=== PATIENT | female | born 1950 | race Caucasian/White ===

== ENCOUNTER 2019-07-15 14:47 | Outpatient (CLI) | payer MEDICARE, SELFPAY ==
--- NOTE | 2019-07-15 15:00 | MM_ITS ---
WS: [id number] SCREENING DIGITAL MAMMOGRAM WITH CAD HISTORY: SCREEN COMPARISON: None available. Bilateral CC and MLO views submitted. Computer aided detection analyzed. Breast composition: There are scattered areas of fibroglandular density. Bilateral asymmetries need f urther evaluation. Asymmetries are present in the upper outer quadrant of each breast. These may be b enign lymph nodes but with no prior studies for comparison additional workup is necessary. There is n o architectural distortion. There is an asymmetry on the RIGHT MLO projection which I believe is prob ably the nipple not in profile. Nipple marker recommended on the follow-up studies. RIGHT breast: Spot compression views (CC and MLO). True ML. Ultrasound to follow if abnormality persi sts. Additional nipple marker placed on the RIGHT MLO projection. LEFT breast: Spot compression views (CC and MLO). True ML. Ultrasound to follow if abnormality persis ts. MM/[place] [id number] IMPRESSION: BI-RADS: 0-Incomplete: Need additional imaging evaluation FOLLOW UP: Need Additional Imaging
== END 2019-07-15 14:48 | disposition home or self-care (01) ==
LOC: RADSHAW 14:54
PROVIDERS: PCP Nurse Practitioner Family; Visit Provider Nurse Practitioner Family
DX: Z12.31 Encounter for screening mammogram for malignant neoplasm of breast (principal); N64.89 Other specified disorders of breast
CPT/HCPCS: 77067

== ENCOUNTER 2019-09-02 09:49 | Outpatient (CLI) | payer MEDICARE, SELFPAY ==
--- NOTE | 2019-09-02 10:01 | US_ITS ---
WS: [id number] ADDITIONAL VIEWS BILATERAL MAMMOGRAM AND BILATERAL BREAST ULTRASOUND ADDITIONAL VIEWS BILATERAL MAMMOGRAM HISTORY: Bilateral abnormal mammogram. COMPARISON: 07/15/2019 Right breast: Lobulated mass in the upper-outer quadrant in a middle depth persists measuring 12 mm. Mass is of slightly increased density. Left breast: 9 mm asymmetry 3:00 axis of the LEFT breast posteriorly also persists. Ill-defined mass. No distortion. BREAST ULTRASOUND RIGHT breast: Lobulated complex cystic mass with septations and echogenic carney. There is adjacent po sterolateral complex cyst in total measuring 1.4 x 0.6 cm. Corresponds in size and location to the ma mmographic abnormality at 10:00, 4 cm from the nipple. LEFT breast: The LEFT breast abnormality posteriorly at 3:00 is not definitely seen by mammography. T here is a lymph node present in the upper-outer quadrant. 1. Ultrasound-guided biopsy recommended of this cystic nodule with septations and echogenic carney RI GHT breast at 10:00, 4 cm from the nipple. 2. 6 month follow-up LEFT mammogram and possible ultrasound. Notified BRANDY MARRERO at 09/02/2019 11:25 AM. US/US breast BI limited* [id number] IMPRESSION: BI-RADS: 4B-Suspicious: Intermediate FOLLOW UP: Biopsy Recommended
== END 2019-09-02 09:50 | disposition home or self-care (01) ==
LOC: RADSHAW 09:57
PROVIDERS: PCP Nurse Practitioner Family; Visit Provider Nurse Practitioner Family
DX: R92.8 Other abnormal and inconclusive findings on diagnostic imaging of breast (principal); N63.11 Unspecified lump in the right breast, upper outer quadrant; N64.89 Other specified disorders of breast
CPT/HCPCS: 76642; 77066

== ENCOUNTER 2019-09-11 16:30 | Outpatient (CLI) | payer MEDICARE, SELFPAY ==
--- NOTE | 2019-09-11 16:51 | XRR_ITS ---
PROCEDURE INFORMATION: Exam: XR Right Shoulder Exam date and time: 09/11/2019 4:51 PM Age: 68 years old Clinical indication: Injury or trauma; Fall; Initial encounter; Blunt trauma (contusions or hematomas; Shoulder; Right; Injury date: About 3 months ago; Additional info: Pain in right shoulder TECHNIQUE: Imaging protocol: XR Right shoulder. Views: 2 or more views. COMPARISON: No relevant prior studies available. FINDINGS: Bones/joints: Normal. Soft tissues: Normal. XR/XR shoulder RT min 2V* [id number] IMPRESSION: No acute findings.
== END 2019-09-11 16:31 | disposition home or self-care (01) ==
LOC: RAD 16:32
PROVIDERS: PCP Nurse Practitioner Family; Visit Provider Nurse Practitioner Family
DX: M25.511 Pain in right shoulder (principal); W19.XXXA Unspecified fall, initial encounter
CPT/HCPCS: 73030

== ENCOUNTER 2019-09-13 11:58 | Outpatient (CLI) | payer MEDICARE, SELFPAY ==
--- NOTE | 2019-09-13 12:09 | US_ITS ---
WS: [id number] ULTRASOUND-GUIDED RIGHT BREAST BIOPSY CLINICAL INFORMATION: BREAST MASS/R BREAST ABNORMAL MAMMOGRAM COMPARISON: None. FINDINGS: The procedure including risks, benefits, and complications were discussed with the patient who agreed to proceed. Using sterile technique patient was prepped and draped in the usual sterile fashion. Aft er 1% lidocaine utilizing real-time ultrasound guidance aspiration was performed utilizing a 16-gauge needle and ultrasound guidance. Approximately 1 to 2 cc of bloody fluid was aspirated and sent for c ytology. Next 5 14-gauge cores were obtained of the lobulated breast lesion at the 10 o'clock positio n. Subsequently a titanium clip was placed in the biopsy cavity. No immediate complications. PATHOLOGY DEMONSTRATES Right breast, 10 o'clock position, needle core biopsies: Disrupted intraductal papillomas and focal a typical intraductal hyperplasia Surrounding breast with fibrosis and chronic inflammation CYTOLOGY DEMONSTRATES Moderate cellularity with sheets of benign ductal cells as well as histiocytes. A few apical and cell s. Lesions are essentially benign but atypical neoplastic lesion cannot be excluded. US/[place] [id number] IMPRESSION: 1. Uncomplicated ultrasound-guided right breast biopsy and aspiration of the s eptated clustered cysts. 2. Pathology demonstrates intraductal papilloma with focal atypical intraducta l hyperplasia. Recommend breast surgery consult for consideration of surgical b iopsy. BI-RADS: 4A-Suspicious: Low FOLLOW UP: Surgical Biopsy Recommended
== END 2019-09-13 11:59 | disposition home or self-care (01) ==
LOC: RAD 12:03
PROVIDERS: PCP Nurse Practitioner Family; Visit Provider Nurse Practitioner Family
DX: R92.8 Other abnormal and inconclusive findings on diagnostic imaging of breast (principal); N63.11 Unspecified lump in the right breast, upper outer quadrant; N62 Hypertrophy of breast; D24.1 Benign neoplasm of right breast; N60.31 Fibrosclerosis of right breast
CPT/HCPCS: 19083; 88112; 88305

== ENCOUNTER → 2022-01-06 14:36 | Outpatient (BNVA) | payer MEDICARE, SELFPAY | PROVIDERS: PCP Nurse Practitioner Family; Visit Provider Family Medicine | DX: M25.473 Effusion, unspecified ankle (principal); R60.0 Localized edema | CPT/HCPCS: 81000 ==

== ENCOUNTER 2022-01-10 01:00 | Outpatient (CLI) | payer MEDICARE, SELFPAY | END 2022-01-10 23:00 | LOC: RAD 01-16 10:12 | PROVIDERS: PCP Nurse Practitioner Family; Visit Provider Nurse Practitioner | DX: M25.561 Pain in right knee (principal); M25.562 Pain in left knee; E66.9 Obesity, unspecified; Z68.41 Body mass index [BMI] 40.0-44.9, adult | CPT/HCPCS: 20610; 73560; 73565; 99204; J1100; J2795; J3301 ==

== ENCOUNTER 2022-01-14 07:33 | Outpatient (CLI) | payer MEDICARE, SELFPAY ==
--- NOTE | 2022-01-14 07:43 | US_ITS ---
WS: [id number] RIGHT UPPER QUADRANT ULTRASOUND HISTORY: RUQ ABDOMINAL PAIN COMPARISON: 07/23/2017 and 12/05/2015 Liver: 15.1 cm in length. Normal size liver. No bile duct dilatation or mass. Portal Vein: Normal hepatopetal flow with monophasic waveform. Gallbladder: Large amount shadowing from the gallbladder consistent with cholelithiasis. Cholelithias is has been previously described. The extent of the calcifications appears to have progressed. No per icholecystic fluid or wall thickening. CBD: 0.4 cm Pancreas: Partially visualized. Head and tail are obscured by bowel gas. Right kidney: 17.5 cm in length. Enlarged kidney. Patient has known large parapelvic cysts that were previously described on 03/12/2016. Multiple cystic masses throughout the renal pelvis mimics hydronep hrosis. The cortex is thinned. Very similar to the prior examinations. It would be difficult to exclu de hydronephrosis but based upon the prior imaging studies no change since at least 2017. These were thought to be parapelvic cysts. Aorta and IVC: Unremarkable abdominal aorta and IVC. No ascites. US/US gall bladder [id number] IMPRESSION: 1. Cholelithiasis. Numerous large stones in the gallbladder without acute chol ecystitis. 2. Numerous cystic structures in the RIGHT renal pelvis. Differential includes hydronephrosis and parapelvic cyst. Parapelvic cysts were described in 2017 an d the appearance is very similar.
== END 2022-01-14 07:34 | disposition home or self-care (01) ==
LOC: RAD 07:35
PROVIDERS: PCP Nurse Practitioner Family; Visit Provider Nurse Practitioner
DX: K80.20 Calculus of gallbladder without cholecystitis without obstruction (principal); R10.11 Right upper quadrant pain
CPT/HCPCS: 76705

== ENCOUNTER 2022-01-22 13:31 | Outpatient (CLI) | payer MEDICARE, SELFPAY ==
--- NOTE | 2022-01-22 13:45 | XR_ITS ---
WS: [id number] DEXA (DUAL ENERGY X-RAY ABSORPTIOMETRY) Bone mineral density was performed using a [employer] machine. HISTORY: POST MENOPAUSAL COMPARISON: None available. Lumbar spine BMD (L1-L4): 1.131 g/cm2 T score: -0.4 Z score: 0.1 Total hip BMD: Left: 0.854 g/cm2. T score: -1.2 Z score: -0.5 Right: 0.704 g/cm2. T score: -2.4 Z score: -1.7 10 year probability of a major osteoporotic fracture is 26.6%. XR/XR DEXA axial skeleton* [id number] IMPRESSION: OSTEOPENIA based upon the WHO classification for females.
== END 2022-01-22 13:32 | disposition home or self-care (01) ==
LOC: RAD 13:35
PROVIDERS: PCP Nurse Practitioner; Visit Provider Nurse Practitioner
DX: Z78.0 Asymptomatic menopausal state (principal); M85.80 Other specified disorders of bone density and structure, unspecified site
CPT/HCPCS: 77080

== ENCOUNTER 2022-01-30 14:54 | Outpatient (CLI) | payer MEDICARE, SELFPAY ==
--- NOTE | 2022-01-30 15:02 | MM_ITS ---
WS: [id number] BILATERAL 3D TOMOSYNTHESIS DIGITAL SCREENING MAMMOGRAPHY WITH CAD CLINICAL INFORMATION: SCREENING HISTORY: Screening mammogram. No current complaints. COMPARISON: September 02, 2019 TECHNIQUE: Bilateral CC and MLO views. FINDINGS: Scattered fibroglandular densities bilaterally. No suspicious focal mass, asymmetry, calcifications, or architectural distortion. No evidence of malignancy. A few incidental punctate calcifications. MM/[place] [id number] IMPRESSION: BI-RADS: 2-Benign FOLLOW UP: 1 Year Follow-up Recommend return to annual screening mammography.
== END 2022-01-30 14:55 | disposition home or self-care (01) ==
LOC: RAD 14:55
PROVIDERS: PCP Nurse Practitioner; Visit Provider Nurse Practitioner
DX: Z12.31 Encounter for screening mammogram for malignant neoplasm of breast (principal)
CPT/HCPCS: 77063; 77067

== ENCOUNTER → 2022-02-05 08:06 | Outpatient (BNVA) | payer MEDICARE, SELFPAY | PROVIDERS: PCP Nurse Practitioner; Visit Provider Nurse Practitioner Family | DX: M17.0 Bilateral primary osteoarthritis of knee (principal) | CPT/HCPCS: 20610; 99213 ==

== ENCOUNTER → 2022-05-08 10:38 | Outpatient (BNVA) | payer MEDICARE, SELFPAY | PROVIDERS: PCP Nurse Practitioner; Visit Provider Nurse Practitioner Family | DX: M25.561 Pain in right knee (principal); M25.562 Pain in left knee; E66.9 Obesity, unspecified; Z68.41 Body mass index [BMI] 40.0-44.9, adult | CPT/HCPCS: 20610; 99213; J1100; J3301; J3490 ==

== ENCOUNTER → 2022-08-21 09:25 | Outpatient (BNVA) | payer MEDICARE, MEDICAID, SELFPAY | PROVIDERS: PCP Nurse Practitioner; Visit Provider Nurse Practitioner Family | DX: M25.561 Pain in right knee (principal); M25.562 Pain in left knee | CPT/HCPCS: 20610; 99213; J1100; J2795; J3301 ==

== ENCOUNTER 2022-09-21 14:13 | Emergency (ER) | payer MEDICARE, MEDICAID, SELFPAY ==
[2022-09-21 14:19] VITALS: BP 166/87; PULSE 70; RESP 16; TEMP 36.7; O2SAT 96; BMI 45.3
--- NOTE | 2022-09-21 15:46 | W.ED.WOUNDLC ---
HPI - Wound/Laceration General: Chief Complaint: Wound/Laceration Stated Complaint: Left Hand Finger Lac Time Seen by Provider: 09/21/22 14:29 History of Present Illness: Patient is a right dominant 71-year-old female that presents to the emergency to the left index finger distal to the DIP No active bleeding here No nail involvement Last tetanus was Associated symptoms: Denies chills, fever(s), nausea or vomiting Review of Systems General: Reports: 10 or more systems reviewed and unremarkable except in HPI and below Const: Denies: fever(s), chills, change in appetite, change in weight, fatigue or malaise Eyes: Denies: change in vision, eye discomfort, eye discharge or eye redness ENMT: Denies: throat pain, enlarged tonsils, odynophagia, hoarseness, ear or mastoid pain, ear discharge, change in hearing, tinnitus, nasal discharge, nasal congestion, post nasal drip or sinus pain Card: Denies: chest pain, palpitations, irregular heart rhythm, edema, dyspnea on exertion, orthopnea or leg pain with exertion Resp: Denies: dyspnea, productive cough, non-productive cough, wheezing, stridor or chest congestion GI: Denies: abdominal pain, nausea, vomiting, dysphagia, diarrhea, constipation, bloating, GI cramping or hematochezia : Denies: flank pain, difficulty voiding, dysuria, urinary frequency, urinary urgency, urinary hesitancy, oliguria or hematuria Musc: Denies: neck pain, back pain, extremity pain, joint pain, joint swelling, joint redness, joint warmth or muscle weakness Skin/Breast: Denies: rash, pruritus, erythema, photosensitivity or new lesions Neuro: Denies: headache(s), numbness in extremities, weakness in extremities, sensory changes, lack of coordination, difficulty walking, frequent falls, dizziness, confusion, Slurred speech present, difficulty communicating thoughts, seizure-like activity or involuntary movements Endo: Denies: polyuria, polydipsia or tired all the time Sina/Lymph: Denies: easy bruising or easy bleeding PFSH ED PFSH: Social History Smoking and tobacco status: never smoked Alcohol intake: never Substance/Drug Use: never Physical Exam Const: COMMON NORMALS: no acute distress, patient oriented x3 and alert GENERAL APPEARANCE: cooperative ORIENTATION/CONSCIOUSNESS: Yes awake, Yes oriented to person, Yes oriented to place and Yes oriented to time HENMT: COMMON NORMALS: normocephalic and atraumatic HEAD & SCALP: normocephalic and atraumatic FACE & SINUS: normal facial exam MOUTH: Normal oral and palatal mucosa present THROAT: posterior oropharynx normal Eye: COMMON NORMALS: Equal, round and reactive pupils present, EOMs intact bilaterally, conjunctivae normal and no scleral icterus GENERAL EYE: appearance normal, both eyes and all related structures ALIGNMENT: Yes alignment normal PERIORBITAL: periorbital findings normal CONJUNCTIVA: Yes conjunctivae normal PUPIL: Yes Equal, round and reactive pupils present Neck/C-Spine: COMMON NORMALS: full ROM GENERAL: Yes normal visual inspection Lymph: LYMPHATIC: no lymphadenopathy noted Chest: COMMONS NORMALS: normal inspection of the chest Breast/axilla inspection: Yes no chest deformity, asymmetry, normal contours, no nodules, masses, tenderness Resp: COMMON NORMALS: normal respiratory effort, No retractions, No use of accessory muscles and clear to auscultation bilaterally EFFORT & INSPECTION: Yes able to speak in complete sentences and Yes symmetric chest movement AUSCULTATION: clear to auscultation bilaterally Cardio: COMMON NORMALS: regular rate, regular rhythm and Peripheral pulses 2+ throughout RATE: regular rate RHYTHM: regular rhythm PERIPHERAL PULSES: Peripheral pulses 2+ throughout GI: COMMON NORMALS: Normal to inspection, nondistended, normoactive bowel sounds present, Soft to palpation, non-tender and No hepatosplenomegaly present INSPECTION: Yes normal to inspection AUSCULTATION: Yes normoactive bowel sounds PALPATION: Yes Soft to palpation and Yes No hepatosplenomegaly present RECTAL EXAM: deferred Extremity: COMMON NORMALS: normal to inspection GENERAL: Yes normal exam except as noted Neuro: COMMON NORMALS: patient oriented x3 SENSORIUM/ORIENTATION: Yes alert, Yes oriented to person, Yes oriented to place and Yes oriented to time CRANIAL NERVES: Yes CN normal except as noted Psych: COMMON NORMALS: mental status grossly normal, Normal thought process present, cooperative, activity/motor behavior normal, denies homicidal ideation and denies suicidal ideation THOUGHT PROCESS: Normal thought process present Skin: COMMON NORMALS: no rashes or lesions noted, no wounds and turgor normal NARRATIVE SKIN EXAM: Half centimeter lunate laceration to the medial aspect of the left index finger distal to the DIP No active bleeding No tendon involvement No nail involvement GENERAL SKIN EXAM: no rashes or lesions noted and turgor normal Procedures Laceration Laceration 1: Site: hand (Finger) Side (If applicable): left Size (cm): 0.5 Description: linear (Lunate) Depth: simple, single layer Local Anesthetic: other anesthetic (Not applicable) Pre-repair: wound explored, irrigated extensively and deep structures intact Skin layer closed with: other (Tissue adhesive) Course Vital Signs: Vital signs: Vital Signs Temperature 98.0 F 09/21/22 14:19 Pulse Rate 70 09/21/22 14:19 Respiratory Rate 16 09/21/22 14:19 Blood Pressure 166/87 09/21/22 14:19 Pulse Oximetry 96 09/21/22 14:19 Oxygen Delivery Me thod Room Air 09/21/22 14:19 MDM - Wound/Laceration Medical Decision Making Injury was sustained while she was cutting squash. She cut it with a clean knife. Wound was cleansed with soap and water utilizing a Steri-Strip and tissue adhesive it was closed. Discharge Plan Discharge Patient Disposition: Home Clinical Impression: Laceration Condition: Stable Prescriptions: No Action alendronate 70 mg tablet PO amoxicillin 875 mg tablet 875 mg PO BID benzonatate 200 mg capsule 200 mg PO TID oxybutynin chloride 5 mg tablet 5 mg PO DAILY meloxicam 15 mg tablet 15 mg PO DAILY Qty: 30 1RF rosuvastatin [Crestor] 5 mg tablet 10 mg PO DAILY furosemide 40 mg tablet 40 mg PO QAM Qty: 7 0RF Discharge Orders: Discharge ED (Routine); Ordered 09/21/22 Ordered By: Caryn Crespo Referrals: Emily Cisse FNP [Primary Care Provider] - Discharge Diet: Advance as tolerated Discharge Activity: Resume usual activity Patient Instructions: Laceration (ED), Skin Adhesive Care (ED) Activity Restrictions/Additional Instructions: Please return to the emergency department for new concerning or worsening symptoms Coding Level of Care Code ED Director Transportation for Catrachito Tran
== END 2022-09-21 17:03 | disposition home or self-care (01) ==
PROVIDERS: Emergency Provider Nurse Practitioner; PCP Nurse Practitioner
DX: S61.211A Laceration without foreign body of left index finger without damage to nail, initial encounter (principal); W26.0XXA Contact with knife, initial encounter
CPT/HCPCS: 12001; 99282

== ENCOUNTER 2023-11-29 11:03 | Emergency (ER) | payer MEDICARE, MEDICAID, SELFPAY ==
--- NOTE | 2023-11-29 11:25 | USR_ITS ---
PROCEDURE INFORMATION: Exam: US Duplex Right Lower Extremity Veins, Limited Exam date and time: 11/29/2023 12:30 PM Age: 73 years old Clinical indication: Edema, localized; Lower extremity, right; Additional info: Swelling TECHNIQUE: Imaging protocol: Real-time duplex ultrasound of the right extremity with 2-D polo scale, color Doppler flow and spectral waveform analysis including responses to compression and other maneuvers (when performed) with image documentation. Limited exam was focused on the right lower extremity veins. COMPARISON: US renal BI* [id number] 07/23/2017 2:24 PM FINDINGS: Right deep veins: Hypoechoic, occlusive thrombus in the femoral, popliteal and peroneal veins. The common femoral, proximal profunda femoral and posterior tibial veins are patent without thrombus. Superficial veins: Greater saphenous vein at the saphenofemoral junction is patent without thrombus. Soft tissues: Unremarkable. US/[place] [id number] IMPRESSION: Right lower extremity deep venous thrombosis, as described above.
[2023-11-29 11:27] VITALS: BP 133/76; PULSE 70; RESP 16; TEMP 36.7; O2SAT 96; BMI 38.9
[2023-11-29 12:00] VITALS: BP 116/61; PULSE 60; O2SAT 98
--- NOTE | 2023-11-29 12:09 | ED_ITS ---
HPI - Extremity Problem General: Chief complaint: Extremity Problem,Nontraumatic Stated complaint: swollen leg (sent by [facility] clinic) Time Seen by Provider: 11/29/23 11:39 History of Present Illness: 73-year-old female presents emergency ro om planing right leg swelling. She was seen earlier in [place] emergency room transferred here via private vehicle because she is concerned she has a DVT. Patient has a superficial thrombophlebitis with small area of ecchymosis in the lateral right lower leg. No chest pain no shortness of breath. Associated symptoms: Deny chest pain, fever(s) or rash Related Data Home Medications Medication Instructions Recorded Confirmed oxybutynin chloride 5 mg tablet 5 mg PO DAILY 12/20/21 09/21/22 rosuvastatin 5 mg tablet (Crestor) 10 mg PO DAILY 02/05/22 09/21/22 alendronate 70 mg tablet 70 mg PO Q7D 08/21/22 09/21/22 lisinopril 5 mg tablet 5 mg PO DAILY 07/07/23 07/07/23 tramadol 50 mg tablet 50 mg PO DAILY PRN 07/07/23 07/07/23 Previous Rx's Medication Instructions Recorded albuterol sulfate 90 mcg/actuation 2 puff inhalation Q4H PRN 07/07/23 aerosol inhaler (Ventolin HFA) shortness of breath or wheezing #8.5 grams doxycycline hyclate 100 mg tablet 100 mg PO BID 7 days #14 tabs 07/07/23 apixaban 5 mg (74 tabs) tablets in See Rx Instructions PO .COMPLEX 11/29/23 a dose pack (Eliquis DVT-PE Treat #74 ea 30D Start) Allergies Allergy/AdvReac Type Severity Reaction Status Date / Time constrast Allergy Unknown Uncoded 11/29/23 11:33 Review of Systems Const: Denies: fever(s) or chills Card: Denies: chest pain Resp: Denies: dyspnea GI: Denies: abdominal pain : Denies: dysuria, urinary frequency or urinary urgency Musc: Reports: extremity pain; Denies: neck pain or back pain Skin/Breast: Denies: rash PFSH ED PFSH: Social History Smoking and tobacco/nicotine status: never used tobacco/nicotine Alcohol intake: never Substance/Drug Use: never Physical Exam Const: COMMON NORMALS: no acute distress GENERAL APPEARANCE: cooperative and comfortable ORIENTATION/CONSCIOUSNESS: Yes awake, Yes oriented to person, Yes oriented to place and Yes oriented to time HENMT: COMMON NORMALS: normocephalic, atraumatic and hearing grossly normal bilaterally HEAD & SCALP: normocephalic and atraumatic Resp: COMMON NORMALS: normal respiratory effort, No retractions, No use of accessory muscles and clear to auscultation bilaterally AUSCULTATION: clear to auscultation bilaterally Cardio: COMMON NORMALS: regular rate, regular rhythm and No murmurs present (Cardio) RATE: regular rate RHYTHM: regular rhythm GI: COMMON NORMALS: Soft to palpation and No hepatosplenomegaly present AUSCULTATION: Yes normoactive bowel sounds PALPATION: Yes Soft to palpation, No Tenderness to palpation present (GI), No Guarding due to palpation present (GI) and Yes No hepatosplenomegaly present Extremity: COMMON NORMALS: normal to inspection, capillary refill normal, no clubbing, cyanosis or edema, no calf tenderness and no pedal edema OTHER: Tenderness with moderate swelling right lower leg with some ecchymosis warm to the touch. Consistent with superficial thrombophlebitis. Homans negative. Neuro: SENSORIUM/ORIENTATION: Yes oriented to person, Yes oriented to place and Yes oriented to time Skin: COMMON NORMALS: no rashes or lesions noted GENERAL SKIN EXAM: no rashes or lesions noted Course Vital Signs: Vital signs: Vital Signs Temperature 98.1 F 11/29/23 11:27 Pulse Rate 70 11/29/23 11:27 Respiratory Rate 16 11/29/23 11:27 Blood Pressure 133/76 11/29/23 11:27 Pulse Oximetry 96 11/29/23 11:27 Oxygen Delivery Me thod Room Air 11/29/23 11:27 MDM - Extremity (Nontraumatic) Medical Decision Making Venous duplex lower leg does show evidence of DVT. Patient given Lovenox emergency room and was started on Eliquis regular starter pack. Patient advised to follow-up with primary care doctor regarding continuation on the Eliquis. As scheduled next week of the knee arthroplasty recommend she contact her doctor to advise that she was recently diagnosed with a DVT but will likely need to reschedule. 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 Condition: Stable Prescriptions: New Eliquis DVT-PE Treat 30D Start 5 mg (74 tabs) tablets,dose pack See Rx Instructions .ROUTE .COMPLEX Qty: 74 0RF Rx Instructions: orally per package directions No Action alendronate 70 mg tablet 70 mg PO Q7D Rx Instructions: ON FRIDAY lisinopril 5 mg tablet 5 mg PO DAILY tramadol 50 mg tablet 50 mg PO DAILY PRN doxycycline hyclate 100 mg tablet 100 mg PO BID 7 Days Qty: 14 0RF albuterol sulfate [Ventolin HFA] 90 mcg/actuation HFA aerosol inhaler 2 puff inhalation Q4H PRN (Reason: shortness of breath or wheezing) Qty: 8.5 0RF oxybutynin chloride 5 mg tablet 5 mg PO DAILY rosuvastatin [Crestor] 5 mg tablet 10 mg PO DAILY Discharge Orders: Discharge ED (Routine); Ordered 11/29/23 Ordered By: Tr Nix Referrals: Emily Cisse, SAP BW ARCHITECT [Primary Care Provider] - Discharge Diet: Usual diet Discharge Activity: Resume usual activity Patient Instructions: Apixaban (By mouth) (Eliquis), Deep Vein Thrombosis (ED), Opioid Safety, Pain Management Activity Restrictions/Additional Instructions: Thank you for choosing [facility] for your healthcare needs today. It is very important that you follow up as instructed or that you return to the Emergency Department should you have concerns or if your condition changes or worsens in any way. Follow-up with your doctor regarding the DVT he will need to be on long-term anticoagulation. Initial prescription was given to take for 30 days you should follow-up with To get refills. Coding Level of Care Code ED Traveling Buyer for Catrachito Tran
[2023-11-29 12:30] VITALS: BP 104/68; PULSE 69; O2SAT 98
[2023-11-29 13:00] VITALS: BP 120/65; PULSE 65; O2SAT 99
[2023-11-29] MEDS: enoxaparin 100 mg/mL Syringe SUBCUT (13:08)
[2023-11-29 13:30] VITALS: BP 127/68; PULSE 70; O2SAT 98
== END 2023-11-29 13:32 | disposition home or self-care (01) ==
PROVIDERS: Emergency Provider Family Medicine; PCP Nurse Practitioner
DX: I82.431 Acute embolism and thrombosis of right popliteal vein (principal); I82.451 Acute embolism and thrombosis of right peroneal vein; I82.411 Acute embolism and thrombosis of right femoral vein; I83.11 Varicose veins of right lower extremity with inflammation
CPT/HCPCS: 93971; 96372; 99284; J1650

== ENCOUNTER 2024-01-26 12:40 | Outpatient (CLI) | payer MEDICARE, MEDICAID, SELFPAY ==
--- NOTE | 2024-01-26 12:46 | XR_ITS ---
WS: [id number] DEXA (DUAL ENERGY X-RAY ABSORPTIOMETRY) Bone mineral density was performed using a [employer] machine. HISTORY: OSTEOPOROSIS COMPARISON: 01/22/2022 Lumbar spine BMD (L1-L4): 1.005 g/cm2 T score: -1.5 Z score: -0.8 Total hip BMD: Left: 0.911 g/cm2. T score: -0.8 Z score: 0.1 Right: 0.781 g/cm2. T score: -1.8 Z score: -0.9 10 year probability of a major osteoporotic fracture is 29.7%. Compared to the prior study from 01/22/2022. Lumbar spine bone mineral density has decreased by 11.1%. Bilateral hips bone mineral density has increased by 8.6%. XR/XR DEXA axial skeleton* [id number] IMPRESSION: OSTEOPENIA based upon the WHO classification for females. Significant decrease in bone mineral density within the lumbar spine. Significant increase in bone mineral density within the hips.
--- NOTE | 2024-01-26 12:46 | MM_ITS ---
WS: [id number] Bilateral screening 3D tomosynthesis digital mammogram, 01/26/2024 12:57 PM Clinical Data: SCREENING Comparison: 01/30/2022, 09/02/2019, 07/15/2019 Findings: No spiculated masses or clustered calcifications are seen. There are no secondary signs of carcinoma . MM/MM scr BI tomosynthesis [id number] Impression: Negative bilateral mammogram unchanged. Recommend annual screening mammograms. BIRADS: 1 - Negative. FOLLOW UP: 1 Year Follow-up DENSITY: There are scattered areas of fibroglandular density. The CAD typing checker was used
== END 2024-01-26 12:41 | disposition home or self-care (01) ==
LOC: RAD 12:41
PROVIDERS: PCP Nurse Practitioner; Visit Provider Nurse Practitioner
DX: Z12.31 Encounter for screening mammogram for malignant neoplasm of breast (principal); Z13.820 Encounter for screening for osteoporosis; M85.80 Other specified disorders of bone density and structure, unspecified site; M81.0 Age-related osteoporosis without current pathological fracture
CPT/HCPCS: 77063; 77067; 77080

== ENCOUNTER 2024-06-28 08:33 | Outpatient (CLI) | payer MEDICARE, MEDICAID, SELFPAY ==
--- NOTE | 2024-06-28 08:37 | US_ITS ---
WS: [id number] RENAL ULTRASOUND HISTORY: RENAL CYST COMPARISON: CT 03/12/2016, prior renal ultrasound 07/23/2017, CT 08/07/2005 TECHNIQUE: 2-D and color Doppler imaging of the kidney submitted. Right kidney: 14.7 cm x 6.9 cm x 7.0 cm. Cortex: 0.9 cm Enlarged kidney with diffuse thinning of the renal cortex. Multiple cystic masses are noted within the renal pelvis. These masses have been present since 2016 thought to be parapelvic cyst. There is mild medullary enlargement. Possibility of a high-grade UP junction obstruction should also be considered. Left kidney: 13.8 (cm) cm x 6.1 (cm) cm x 6.2 (cm) cm. Cortex: 0.4 cm Enlarged kidney with diffuse cortical thinning. Multiple cystic masses throughout the renal pelvis. Medullary prominence also. Aorta: Not visualized. Urinary Bladder: Minimally distended. US/US renal BI* [id number] IMPRESSION: 1. Mildly enlarged kidneys with diffuse cortical thinning. 2. Multiple cystic masses within the renal pelves. Differential includes multi ple parapelvic cysts or longstanding UP junction obstruction. These cystic mass es have been present on multiple prior studies including extending back to 2005 . Functional nuclear medicine renal study may be of benefit.
== END 2024-06-28 08:34 | disposition home or self-care (01) ==
PROVIDERS: PCP Nurse Practitioner; Visit Provider Nurse Practitioner Family
DX: N28.1 Cyst of kidney, acquired (principal); N28.81 Hypertrophy of kidney; N28.89 Other specified disorders of kidney and ureter; R93.422 Abnormal radiologic findings on diagnostic imaging of left kidney
CPT/HCPCS: 76770

== ENCOUNTER → 2024-07-30 11:19 | Outpatient (BNVA) | payer MEDICARE, MEDICAID, SELFPAY | PROVIDERS: PCP Nurse Practitioner; Visit Provider Internal Medicine | DX: E07.9 Disorder of thyroid, unspecified (principal); E05.90 Thyrotoxicosis, unspecified without thyrotoxic crisis or storm | CPT/HCPCS: 99204 ==

== ENCOUNTER → 2024-10-19 12:38 | Outpatient (BNVA) | payer MEDICARE, MEDICAID, SELFPAY | PROVIDERS: PCP Nurse Practitioner; Visit Provider Internal Medicine | DX: E07.9 Disorder of thyroid, unspecified (principal); E05.90 Thyrotoxicosis, unspecified without thyrotoxic crisis or storm | CPT/HCPCS: 36415; 83516; 84439; 84443; 84480; 86376; 86800; 99214 ==

== ENCOUNTER 2024-10-21 17:21 | Emergency (ER) | payer MEDICARE, MEDICAID, SELFPAY ==
--- OUTSIDE RECORDS SUMMARY | 2023-06-30 12:00 | XMS_ITS ---
Author Organization [facility] Address [address] [facility] [place] [address] Care Team Providers Care Food Quality Technician Name Role Phone Emily Cisse APN Primary Care Provider Parasa BOBBY Ray Unavailable [phone] REASON FOR VISIT 1 yr w/ ua/pvr Encounters Encounter Location Date Provider Diagnosis [facility] [address] [place] [facility] [place] [address] 06/30/2023 BOBBY FAUSTIN Plan Of Treatment Next Appt Details Provider Name:MELISSA JARA NS, 08/04/2025 03:00:00 PM, [address] [place], [address], Progress Notes * Lauerl MA MDOB: (74 yo F)Acc No.[id number]:06/30/2023 Progress Notes Patient: Miah PEDRO Laurel Rakesh Provider: Irma FAUSTIN MD :1950 A ge:72 Y S ex:Female Date:06/30/2023 Address:[address] [place], [place] [id number] Pcp:Emily Cisse APN Subjective: * Chief Complaints: * 1 . 1 yr w/ ua/pvr. * Medical History: Objective: * Vitals: Assessment: Plan: * Treatment: * Billing Information: * Visit Code: * Procedure Codes: * Electronic signature of AUST IN MD ROXIE on 10/21/2024 at 05:25 PM CDT Sign off status: Pending * Provider: Irma FAUSTIN MD Date: 0 06/30/2023 Generated for Marci carrasco/Yecenia/Quang on: 0 10/21/2024 05:25 PM CDT
--- OUTSIDE RECORDS SUMMARY | 2024-08-23 09:20 | XMS_ITS ---
Author Organization [facility] Address [address] [address] Care Team Providers Care Hazardous Waste Material Technician Name Role Phone Emily Cisse Unavailable [phone] Allergies Allergen (clinical drug ingredient) Drug/Non Drug Allergy documented on EMR Reaction Allergy Type Onset Date Status escitalopram Escitalopram anger Drug Allergy A ctive REASON FOR VISIT general checkup-has new meds Medications Medication SIG (Take, Route, Frequency, Duration) Notes Start Date End Date Status Farxiga 5 MG 1 tablet Orally Once a day; Duration: 90 days 06/30/2024 06/25/2025 Active Alendronate Sodium 70 MG TAKE 1 TAB BY MOUTH ONCE WEEKLY W/ WATER, 30MINS BEFORE FIRST FOOD, BEVERAGE, OR MEDICINE OF THE DAY 84; Duration: 84 Active traMADol HCl 50 MG 1 tab Oral Once a day; Duration: 90 days As needed for knee pain DX code : M17.0 07/19/2024 Active Escitalopram Oxalate 10 MG 1 tablet Orally Once a day; Duration: 90 days 12/17/2023 Not-Taking Ozempic (1 MG/DOSE) 4 MG/3ML inject 2.5mg Subcutaneous weekly; Duration: 30 days Active Nebulizer/Tubing/Marissa thpiece - as directed 07/09/2023 Active Ventolin HFA 108 (90 Base) MCG/ACT 2 puff as needed for cough or congestion Inhalation every 4 hrs; Duration: 14 07/25/2022 Active Ipratropium-Albutero l 0.5-2.5 (3) MG/3ML 3 mL as needed Inhalation every 6 hrs 07/09/2023 Active Lisinopril 5 MG TAKE 1 TABLET BY MOUTH EVERY DAY FOR 90 DAYS Active Rosuvastatin Calcium 10 MG TAKE 1 TABLET BY MOUTH EVERY DAY FOR 90 DAYS Active Tylenol 8 Hour Arthritis Pain 650 MG 2 tablets as needed Orally every 8 hrs Active [place] Sagrada 450 MG as directed Orally Active Ondansetron HCl 4 MG 1 tablet as needed for nausea/vomiting Orally three times daily; Duration: 3 days 07/09/2023 Active methIMAzole 5 MG 1 tablet Orally Once a day Active Flonase 02/11/2024 Active Social History Sex Assigned At : Social History Observation Description Sex Assigned At Female Problems Problem Type SNOMED Code ICD Code Onset Dates Problem Status W/U Status Risk Notes Problem Difficulty walking (876786008) Difficulty walking (R26.2) Active confirmed Vital Signs Temperature 97.9 degrees Fahrenheit 08/24/19 25 Blood pressure systolic 115 mm Hg 08/24/19 25 Blood pressure diastolic 58 mm Hg 025 Heart Rate 58 /min 08/23/2024 Height 63.5 in 08/23/2024 Weight 214.8 lbs 08/23/2024 BMI 37.45 kg/m2 08/23/2024 Oximetry 97 % 08/23/2024 Height-cm 161.29 cm 08/23/2024 Weight-kg 97.43 kg 08/23/2024 Encounters Encounter Location Date Provider Diagnosis [address] [address] 08/23/2024 Emily Cisse Type 2 diabetes boy itus with hyperglycemia, without long-term current use of insulin E11.65 ; Hyperlipidemia, unspecified hyperlipidemia type E78.5 ; Osteoarthritis of both knees, unspecified osteoarthritis type M17.0 ; Type 2 diabetes mellitus with diabetic chronic kidney disease E11.22 ; Chronic kidney disease, stage 2 (mild) N18.2 ; Difficulty walking R26.2 ; Other reduced mobility Z74.09 ; Nausea R11.0 ; History of DVT (deep vein thrombosis) Z86.718 and Deep vein thrombosis (DVT) of other vein of right lower extremity, unspecified chronicity I82.491 Assessments Encounter Date Diagnosis (ICD Code) Assessment Notes Treatment Notes Treatment Clinical Notes Section Notes 08/23/2024 Type 2 diabetes mellitus with hyperglycemia, without long-term current use of insulin (ICD-10 - E11.65) 08/23/2024 Hyperlipidemia, unspecified hyperlipidemia type (ICD-10 - E78.5) 08/23/2024 Osteoarthritis of both knees, unspecified osteoarthritis type (ICD-10 - M17.0) 08/23/2024 Type 2 diabetes mellitus with diabetic chronic kidney disease (ICD-10 - E11.22) 08/23/2024 Chronic kidney disease, stage 2 (mild) (ICD-10 - N18.2) 08/23/2024 Difficulty walking (ICD-10 - R26.2) 08/23/2024 Other reduced mobility (ICD-10 - Z74.09) 08/23/2024 Nausea (ICD-10 - R11.0) 08/23/2024 History of DVT (deep vein thrombosis) (ICD-10 - Z86.718) she will STOP her eliquis today..has been on for almost 9mos. she will need to resume her eliquis for at least 21days after surgery per my consult with dr rachel. she will discuss with her surgeon as well. 08/23/2024 Deep vein thrombosis (DVT) of other vein of right lower extremity, unspecified chronicity (ICD-10 - I82.491) Plan Of Treatment Medication Medication Name Sig Start Date Stop Date Notes Ondansetron HCl 4 MG 1 tablet as needed for nausea/vomiting Orally three times daily; Duration: 3 days 07/09/2023 Eliquis 5 MG 1 tab Orally twice a day Treatment Notes Assessment Notes History of DVT (deep vein thrombosis) she will STOP her eliquis today..has been on for almost 9mos. she will need to resume her eliquis for at least 21days after surgery per my consult with dr rachel. she will discuss with her surgeon as well. Next Appt Details Follow Up: 4 Weeks, Reason: Provider Name:Emily Cisse , 12/23/2024 10:00:00 AM, [address], [address], Provider Name:Emily Cisse , 12/23/2024 10:00:00 AM, [address], [address], Progress Notes * Laurel MA MDOB: (74 yo F)Acc No.[id number]:08/23/2024 Patient: Laurel WEAVER Provider: Rakesh Cisse :1950 A ge:73 Y S ex:Female Date:08/23/2024 Address:[address] [place], [place] [id number] Subjective: * Chief Complaints: * 1 . General checkup-has new meds. * HPI: T ransition of Care: knee sugery 09/02 Dr vern ryan 11/29/2023 Had unprovoked DVT right lower extremity. Has been on Eliquis 5 mg twice daily 6 since. Therapy for over 6 months now. She has upcoming right total knee replacement with Dr. Porras at [facility]. She is wondering about stopping her Eliquis. She has her surgery clearance appointment at [facility] on 08/26/2024. Surgery date is scheduled for September 02, 2024. needs refil on nasuea medicine Due to her GLP-1. * ROS: G eneral / Constitutional: Patient denies w eakness. C omments w t stable.? E ndocrine: Patient complains of d iabetes. R espiratory: Patient denies s hortness of breath. C ardiovascular: Patient denies c hest pain, fluid accumulation in the legs.? G astrointestinal: Patient denies c onstipation, improved on the ozempic 2.5mg. P atient complains of n ausea. M usculoskeletal: Patient complains of b ilat knee pain, right worse than left...improved with weight loss, but still avg pain level is 6/10 she takes 1-2 tramadol per week.... if I have alot to do . N eurologic: Patient denies t ingling / numbness. * Medical History: H x of dm, Cervical cancer, Colonoscopy 2018. dr martinez, nxt in 10yr, Mammo 01/25normal, 12/2021 20.3% 10 yr ascvd risk. lipids started., DEXA sched 01/2025 OZH. * Medications: T laura Weir Sagrada 450 MG Capsule as directed Orally , Taking Tylenol 8 Hour Arthritis Pain 650 MG Tablet Extended Release 2 tablets as needed Orally every 8 hrs , Taking methIMAzole 5 MG Tablet 1 tablet Orally Once a day , Taking Flonase , Taking Nebulizer/Tubing/Mouthpiece - Kit as directed , Taking Ipratropium-Albuterol 0.5-2.5 (3) MG/3ML Solution 3 mL as needed Inhalation every 6 hrs , Taking Ventolin HFA 108 (90 Base) MCG/ACT Aerosol Solution 2 puff as needed for cough or congestion Inhalation every 4 hrs , Taking Rosuvastatin Calcium 10 MG Tablet TAKE 1 TABLET BY MOUTH EVERY DAY FOR 90 DAYS , Taking Lisinopril 5 MG Tablet TAKE 1 TABLET BY MOUTH EVERY DAY FOR 90 DAYS , Taking Ondansetron HCl 4 MG Tablet 1 tablet as needed for nausea/vomiting Orally three times daily , Notes: VO cl/mw, Taking Ozempic (1 MG/DOSE) 4 MG/3ML Solution Pen-injector inject 2.5mg Subcutaneous weekly , Taking Eliquis 5 MG Tablet 1 tab Orally twice a day , Taking Farxiga 5 MG Tablet 1 tablet Orally Once a day , stop date 06/25/2025, Taking traMADol HCl 50 MG Tablet 1 tab Oral Once a day As needed for knee pain, Notes to Pharmacist: DX code : M17.0, Taking Alendronate Sodium 70 MG Tablet TAKE 1 TAB BY MOUTH ONCE WEEKLY W/ WATER, 30MINS BEFORE FIRST FOOD, BEVERAGE, OR MEDICINE OF THE DAY 84 , Not-Taking Escitalopram Oxalate 10 MG Tablet 1 tablet Orally Once a day , Medication List reviewed and reconciled with the patient * Allergies: E scitalopram: anger - Criticality Low. Objective: * Vitals: B P:115/58mm Hg, HR:58/min, Temp:97.9F, Oxygen sat %:97%, Wt:214.8lbs, Wt-k.43 kg, Ht: 63.5 in, Ht-cm: 161.29 cm, BMI:37.45Index, Body Surface Area: 2.09. * Examination: G eneral Examination: General appearance: a lert, pleasant, well-nourished and in no acute distress. Head: n ormocephalic, atraumatic. Eyes: n ormal. Nose: n hasmukh patent. Oral cavity: n ormal. Neck / thyroid: n ormal thyroid size and shape without nodules, or tenderness. Heart: r egular rate and rhythm without murmurs, gallops, clicks or rubs. Lungs: c lear to auscultation bilaterally, with good air movement and no rales, rhonchi or wheezes. Musculoskeletal: d iffuse ttp bilat knees. tra medially. no laxity. Extremities: t race pretib edema bilaterally. Neurologic: a lert and oriented. Psych: n ormal affect / mood. Assessment: * Assessment: 1. T ype 2 diabetes mellitus with hyperglycemia, without long-term current use of insulin - E11.65 (Primary) 2 . H yperlipidemia, unspecified hyperlipidemia type - E78.5 ? 3 . O steoarthritis of both knees, unspecified osteoarthritis type - M17.0 4 . 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 C hronic kidney disease, stage 2 (mild) - N18.2 6 . D ifficulty walking - R26.2 7 . O ther reduced mobility - Z74.09 8 . N ausea - R11.0 9 . H istory of DVT (deep vein thrombosis) - Z86.718 S pecify :unprovoked 11/2023 d/c eliquis 08/2024 1 0. D eep vein thrombosis (DVT) of other vein of right lower extremity, unspecified chronicity - I82.491 Plan: * Treatment: 2. H istory of DVT (deep vein thrombosis) Notes: she will STOP her eliquis today..has been on for almost 9mos. she will need to resume her eliquis for at least 21days after surgery per my consult with dr rachel. she will discuss with her surgeon as well. 3. D eep vein thrombosis (DVT) of other vein of right lower extremity, unspecified chronicity Stop Eliquis Tablet, 5 MG, 1 tab, Orally, twice a day. * Procedure Codes: 1 170F FXNL STATUS ASSESSED * Follow Up: 4 Weeks * Billing Information: * Visit Code: 27326 Office Visit, Est Pt., Level 4. * Procedure Codes: 1170F FXNL STATUS ASSESSED. Images * CCA (QGW) 2024 * Electronic signature of Hossein Cisse , FNPBCMSN on 10/21/2024 at 05:25 PM CDT Sign off status: Pending * Provider: Rakesh Cisse Date: 0 08/23/2024 Generated for Marci carrasco/Yecenia/eTransmitting on: 0 10/21/2024 05:25 PM CDT History and Physical Notes * HPI (History of Present Illness) Category Sub-Category Detail Notes Category Not es Transition of Care [facility] [facility]23 Had unprovoked DVT right lower extremity. Has been on Eliquis 5 mg twice daily 6 since. Therapy for over 6 months now. She has upcoming right total knee replacement with Dr. Porras at [facility]. She is wondering about stopping her Eliquis. She has her surgery clearance appointment at [facility] on 08/26/2024. Surgery date is scheduled for September 02, 2024. needs refil on nasuea medicine Due to her GLP-1 Examination Category Sub-Category Detail Notes Category Not es General Examination General appearance: alert, p leasant, well-nourished and in no acute distress Head: normocephalic, atrau matic Eyes: normal Nose: nares patent Neck / thyroid: normal thyroid size and shape without nodules, or tenderness Heart: regular rate and rhy thm without murmurs, gallops, clicks or rubs Lungs: clear to auscultatio n bilaterally, with good air movement and no rales, rhonchi or wheezes Abdomen: Neurologic: alert and oriented Extremities: trace pretib edema b ilaterally Musculoskeletal: diffuse ttp bilat kn ees. tra medially. no laxity Psych: normal affect / mood Oral cavity: normal
--- OUTSIDE RECORDS SUMMARY | 2024-09-30 04:00 | XMS_ITS ---
Author Organization [facility] Address [address] [place] [phone] Care Team Providers Care Photographic Plate Maker Name Role Phone Emily Cisse Unavailable [phone] REASON FOR VISIT 3 month f/u & labs Social History Sex Assigned At : Social History Observation Description Sex Assigned At Female Encounters Encounter Location Date Provider Diagnosis [facility] [address] [address] 09/30/2024 Emily Cisse Plan Of Treatment Next Appt Details Provider Name:Emily Ghanshyam , 12/23/2024 10:00:00 AM, [address] [place] [address], [phone], Provider Name:Emily Ghanshyam , 12/23/2024 10:00:00 AM, [address] [place] [address], [phone], Progress Notes * Laurel MA MDOB: (74 yo F)Acc No.[id number]:09/30/2024 Patient: Laurel WEAVER Provider: Rakesh Cisse :1950 A ge:73 Y S ex:Female Date:09/30/2024 Address:[address] [place], [place] [phone] Subjective: * Chief Complaints: * 1 . 3 month f/u & labs. * Medical History: Objective: * Vitals: Assessment: Plan: * Treatment: * Billing Information: * Visit Code: * Procedure Codes: * Electronic signature of Hossein Cisse FNPBCMSN on 10/21/2024 at 05:25 PM CDT Sign off status: Pending * Provider: Rakesh Cisse Date: 09/30/2024 Generated for Marci Gagnon on: 10/21/2024 05:25 PM CDT
--- OUTSIDE RECORDS SUMMARY | 2024-10-21 17:25 | XMS_ITS | Encounter Summary ---
Author Organization [facility] Address [address] [place] [address] Care Team Providers Care Filter Washer Name Role Phone Mtnv, External Provider Primary Care Provider Un available Reason for Referral * Radiology Services (Routine) - Closed Specialty Diagnoses / Procedures Referred By Contac t Referred To Contact Radiology Diagnoses Atypical ductal hyperplasia of right breast Procedures MAMMO US GUIDE NEEDLE PLACEMENT Hi Alcaraz MD Phone: tel: fax: [facility] [address] [address] Phone: tel: fax: Referral ID Status Reason Start Date Expiration Date Visits Requested Visits Authorized [id number] Closed Performing Department To Schedule ([facility] 10/08/2019 11/07/2020 1 1 * Radiology Services (Routine) - Closed Specialty Diagnoses / Procedures Referred By Contac t Referred To Contact Radiology Diagnoses Atypical ductal hyperplasia of right breast Procedures MAMMO POST US/STEREO GUIDED PROCEDURE RT Hi Alcaraz MD Phone: tel: fax: [facility] [address] [address] Phone: tel: fax: Referral ID Status Reason Start Date Expiration Date Visits Requested Visits Authorized [id number] Closed Performing Department To Schedule ([facility]) 10/08/2019 11/07/2020 1 1 Encounter Details Date Type Department Care Team (Late st Contact Info) Description 10/08/2019 Ancillary Orders [facility] Gen Spec Surg [address] [place] [address] Hi Alcaraz MD [address] [place] [address] Atypical ductal hyperplasia of right breast Social History Tobacco Use Types Packs/Day Years Used Date Smoking Tobacco: Never Smokeless Tobacco: Never Comments Unknown Sex and Gender Information Value Date Recorded Sex Assigned at Not on file Legal Sex Female 11:18 PM CDT Gender Identity Not on file Sexual Orientation Not on file COVID-19 Exposure Response Date Recorded In the last month, have you been in contact with someone who was confirmed or suspected to have Coronavirus / COVID-19? Unable to assess 10/06/2019 8:04 AM CDT documented as of this encounter Plan of Treatment Not on file documented as of this encounter Results * MAMMO POST US/STEREO GUIDED PROCEDURE RT (10/22/2019 8:15 AM CDT) Anatomical Region Laterality Modality Breast Right Mammography 10/22/2019 8:15 AM CDT Narrative 10/22/2019 11:09 AM CDT RIGHT BREAST ULTRASOUND-GUIDED NEEDLE LOCALIZATION: HISTORY: This 69-year-old female presents for right breast preoperative needle localization for surgical excisional biopsy of an area upper outer mid depth on the right, which received a benign but high risk pathologic diagnosis at ultrasound-guided core biopsy at an outside facility. This is approximately 23 mm, although it appears to be two adjacent similar appearing nodules comprising the overall dimension. This is at 10 o'clock position 4 cm from the nipple. This area is again located today. PROCEDURE: Informed consent was obtained from the patient. Re-evaluation was carried out sonographically and the mass re-identified at the 10 o'clock 4 cm from the nipple position. The breast was prepped and draped in a sterile fashion. 1% Xylocaine was utilized for local anesthetic. Single hookwire localization device was positioned through the area of interest hookwire was placed and needle removed. Hemostasis achieved. Mammographic images in the CC and ML projection were obtained. The wire is in good position. The films were annotated and accompanied the patient to surgery. Dressing was applied. Patient tolerated the procedure well and was escorted to her room to await surgery. SPECIMEN RADIOGRAPH: Specimen radiograph was obtained intraoperatively. Two views were submitted for interpretation and the mass is located within the specimen. The OR was notified. Apparent successful surgical excisional biopsy at the 10 o'clock 4 cm from the nipple position on the right. [id number] us Hi Alcaraz MD MAMMO ORDERABLES Final Result * MAMMO US GUIDE NEEDLE PLACEMENT (10/22/2019 7:56 AM CDT) Anatomical Region Laterality Modality Breast N/A Ultrasound 10/22/2019 7:56 AM CDT Narrative 10/22/2019 11:09 AM CDT RIGHT BREAST ULTRASOUND-GUIDED NEEDLE LOCALIZATION: HISTORY: This 69-year-old female presents for right breast preoperative needle localization for surgical excisional biopsy of an area upper outer mid depth on the right, which received a benign but high risk pathologic diagnosis at ultrasound-guided core biopsy at an outside facility. This is approximately 23 mm, although it appears to be two adjacent similar appearing nodules comprising the overall dimension. This is at 10 o'clock position 4 cm from the nipple. This area is again located today. PROCEDURE: Informed consent was obtained from the patient. Re-evaluation was carried out sonographically and the mass re-identified at the 10 o'clock 4 cm from the nipple position. The breast was prepped and draped in a sterile fashion. 1% Xylocaine was utilized for local anesthetic. Single hookwire localization device was positioned through the area of interest hookwire was placed and needle removed. Hemostasis achieved. Mammographic images in the CC and ML projection were obtained. The wire is in good position. The films were annotated and accompanied the patient to surgery. Dressing was applied. Patient tolerated the procedure well and was escorted to her room to await surgery. SPECIMEN RADIOGRAPH: Specimen radiograph was obtained intraoperatively. Two views were submitted for interpretation and the mass is located within the specimen. The OR was notified. Apparent successful surgical excisional biopsy at the 10 o'clock 4 cm from the nipple position on the right. [id number] Hi Alcaraz MD MAMMO ORDERABLES Final Result documented in this encounter Visit Diagnoses Diagnosis Atypical ductal hyperplasia of right breast documented in this encounter Care Teams Filter Washer Relationship Specialty Start Date End Date Mtnv, External Provider [address] [place] [address] PCP - General Family Practice 10/19/19 documented as of this encounter
--- OUTSIDE RECORDS SUMMARY | 2024-10-21 17:25 | XMS_ITS | Encounter Summary ---
Author Organization [facility] Address [address] [place] [address] Care Team Providers Care Cooker Tender Name Role Phone Mtnv, External Provider Primary Care Provider Un available Encounter Details Date Type Department Care Team (Late st Contact Info) Description 04/06/2020 Ancillary Orders [facility] Pre-Registration [place] CALL TO MAKE APPOINTMENT ONLY [address] [place] [address] Hi Alcaraz MD [address] [phone] Abnormal mammogram Social History Tobacco Use Types Packs/Day Years Used Date Smoking Tobacco: Never Smokeless Tobacco: Never Alcohol Use Standard Drinks/Week Comments Not Currently 0 (1 standard drink = 0.6 oz pur e alcohol) Comments No Sex and Gender Information Value Date Recorded Sex Assigned at Not on file Legal Sex Female 11:18 PM CDT Gender Identity Not on file Sexual Orientation Not on file documented as of this encounter Plan of Treatment Not on file documented as of this encounter Visit Diagnoses Diagnosis Abnormal mammogram Abnormal mammogram, unspecified documented in this encounter Care Teams Cooker Tender Relationship Specialty Start Date End Date Mtnv, External Provider [address] [place] [address] PCP - General Family Practice 10/19/19 documented as of this encounter
--- OUTSIDE RECORDS SUMMARY | 2024-10-21 17:25 | XMS_ITS | Encounter Summary ---
Author Organization [facility] Address [address] [place] [address] Care Team Providers Care Program Writer Name Role Phone Mtnv, External Provider Primary Care Provider Un available Encounter Details Date Type Department Care Team (Late st Contact Info) Description 10/07/2019 Ancillary Orders [facility] [address] [facility] [address] [place] [address] Hi Alcaraz MD [address] [facility] [address] [place] [address] Atypical ductal hyperplasia of right [...] as of this encounter Results * MAMMO PRIOR STUDY (09/13/2019 9:35 AM CDT) Narrative 10/07/2019 9:33 AM CDT This exam was auto finalized to allow images to be scanned to PACS. us Hi Alcaraz MD DIAGNOSTIC IMAGING ORDERABLES Final Result * MAMMO PRIOR STUDY (09/02/2019 9:40 AM CDT) Narrative 10/07/2019 9:34 AM CDT This exam was auto finalized to allow images to be scanned to PACS. us Hi Alcaraz MD DIAGNOSTIC IMAGING ORDERABLES Final Result * MAMMO PRIOR STUDY (09/02/2019 9:35 AM CDT) Narrative 10/07/2019 9:34 AM CDT This exam was auto finalized to allow images to be scanned to PACS. us Hi Alcaraz MD DIAGNOSTIC IMAGING ORDERABLES Final Result * MAMMO PRIOR STUDY (07/15/2019 9:35 AM CDT) Narrative 10/07/2019 9:34 AM CDT This exam was auto finalized to allow images to be scanned to PACS. us Hi Alcaraz MD DIAGNOSTIC IMAGING ORDERABLES Final Result documented in this encounter Visit Diagnoses Diagnosis Atypical ductal hyperplasia of right breast Atypical ductal hyperplasia of right breast Atypical ductal hyperplasia of right breast Atypical ductal hyperplasia of right breast Atypical ductal hyperplasia of right breast documented in this encounter Care Teams Program Writer Relationship Specialty Start Date End Date Mtnv, External Provider [address] [place] [address] PCP - General Family Practice 10/19/19 documented as of this encounter
--- OUTSIDE RECORDS SUMMARY | 2024-10-21 17:25 | XMS_ITS | Clinical Summary ---
Author Organization [facility] Address [address] [place] [address] Phone Care Team Providers Care Arts Manager Name Role Phone Mtnv, External Provider Primary Care Provider Un available Allergies Active Allergy Reactions Criticality Noted Date Comments Dye Itching Low 10/05/2019 Contrast Iodinated Contrast Media Itching Low 10/09/2023 Iodine Hives High 08/26/2024 Medications lisinopriL (PRINIVIL) 5 mg tablet Take 5 mg by mouth daily. 020 Active alendronate (FOSAMAX) 70 mg tablet 023 Active ipratropium-alb uteroL (DUONEB) 0.5 mg-3 mg(2.5 mg base)/3 mL Solution for Nebulization INHALE 1 VIAL VIA NEBULIZER EVERY 6 HOURS NEEDED Active Ozempic 0.25 mg or 0.5 mg (2 mg/3 mL) Pen Injector INJECT 0.5 MG SUBCUTANEOUSLY ONCE WEEKLY Active CASCARA SAGRADA ORAL Take 270 mg by mouth daily. Active oxymetazoline (AFRIN) 0.05 % Mosby, Non-Aerosol Administer 2 Sprays in each nostril 2 times daily. Up to 3 days Active Eliquis 5 mg tablet Take 5 mg by mouth 2 times daily. Active Farxiga 5 mg Tablet Take 1 Tablet by mouth daily. 025 Active ondansetron (ZOFRAN) 4 mg Tablet Take 4 mg by mouth every 6 hours as needed. 025 Active methIMAzole (TAPAZOLE) 5 mg tablet Take 5 mg by mouth daily. 025 Active rosuvastatin (CRESTOR) 10 mg tablet Take 10 mg by mouth daily. Active albuterol (PROVENTIL,VENT TANNA) 2.5 mg /3 mL (0.083 %) Solution for Nebulization 3 mL as needed Inhalation every 6 hrs Active oxyCODONE (ROXICODONE) 5 mg tabletIndicatio ns:Status post total right knee replacement Take 1 Tablet (5 mg) by mouth every 4 hours as needed for Pain, Moderate. Max Daily Amount: 30 mg 42 Tablet Active traMADol (Ultram) 50 mg tabletIndicatio ns:Status post total right knee replacement Take 1 Tablet (50 mg) by mouth every 6 hours as needed for Pain. 28 Tablet Active tranexamic acid (LYSTEDA) 650 mg Tablet tablet Take 3 Tablets (1,950 mg) by mouth daily after supper. 9 Tablet Active polyethylene glycol 3350 (MIRALAX) 17 gram/dose Powder TAKE 1 SCOOP (17 GRAMS) BY MOUTH DAILY. DISSOLVE IN 8 OUNCES OF FLUID AND DRINK ENTIRE LIQUID 510 Gram Active fluticasone propionate (Flonase Allergy Relief) 50 mcg/spray Mosby, Suspension nasal inhaler Administer 2 Sprays in each nostril 1 time daily as needed. Active acetaminophen (TYLENOL) 325 mg tablet Take 2 Tablets (650 mg) by mouth every 6 hours. 240 Tablet 2024 bisacodyL (DULCOLAX) 5 mg Delayed Release tablet Take 1 Tablet (5 mg) by mouth 1 time daily as needed for Constipation. 28 Tablet 025 2024 polyethylene glycol 3350 (Miralax) 17 gram/dose Powder Take 1 Scoop (17 Grams) by mouth daily. Dissolve in 8 ounces of fluid and drink entire liquid 527 Gram 2024 Discontinued famotidine (Pepcid) 20 mg tablet Take 1 Tablet (20 mg) by mouth 2 times daily. 60 Tablet 025 2024 Active Problems Problem Noted Date Diagnosed Date Status post total right knee replacement Chronic anticoagulation - apixaban/Eliquis 09/02 Paroxysmal atrial fibrillati on, rate controlled, occurred during operative repair with anesthesia 09/02/2024 History of DVT (deep vein thrombosis) - RLE 01/02 024 08/26/2024 Severe obesity (BMI 35.0-39.9) with comorbidity 08/26/2024 Dyslipidemia 08/26/2024 Chronic kidney disease, stage 3a 08/26/2024 Hyperthyroidism 08/26/2024 History of cervical cancer 08/26/2024 Primary osteoarthritis of right knee 10/09/2023 HTN (hypertension), benign 10/09/2023 Type 2 diabetes mellitus wit h stage 3 chronic kidney disease, without long-term current use of insulin 10/09/2023 Osteoporosis 10/09/2023 Chronic obstructive pulmonary disease 10/09/2023 Anemia 10/09/2023 At risk for obstructive sleep apnea 10/09/2023 Atypical ductal hyperplasia of right breast 06/2019 At high risk for breast canc er (25% lifetime risk using TC8) 10/05/2019 Resolved Problems Problem Noted Date Diagnosed Date Resolved Date Preop general physical exam 10/09/2023 09/02/2024 Dependence on nocturnal oxygen therapy 10/09/2023 08/26/2024 Morbid obesity with body mas s index of 40.0-49.9 10/09/2023 08/26/2024 Encounters Date Type Department Care Team Description 10/18/2024 Abstract [facility] [address] [facility] [address] [place] [address] Emily Cisse APN 10/05/2024 11:20 AM CDT Office Visit [facility] [address] [place] [phone] Yaniv Knutson PA-C Status post total right knee replacement (Primary Dx) 10/05/2024 11:15 AM CDT Ancillary Procedure [facility] [address] [place] [phone] Abiel Koo MD Status post total right knee replacement 10/01/2024 Refill [facility] [address] [place] [address] Navjot Leiva PA 09/28/2024 External Device Data STL ABSTRACTION Provider, Abstract 09/27/2024 Orders Only [place] [facility] [address] [place] [address] Abiel Koo MD Status post total right knee replacement (Primary Dx) 09/26/2024 Refill [facility] [address] [place] [address] Navjot Leiva PA 09/15/2024 External Device Data STL ABSTRACTION Provider, Abstract 09/14/2024 External Device Data STL ABSTRACTION Provider, Abstract 09/09/2024 Telephone [facility] Case Management [address] [place] [address] Abiel Koo MD Hospital Follow Up 09/07/2024 Telephone [facility] Inpatient [address] [place] [address] Abiel Koo MD Hospital Follow Up 09/06/2024 Telephone [facility] Case Management [address] [place] [address] Abiel Koo MD Hospital Follow Up (Day 3) 09/02/2024 9:08 AM CDT Anesthesia Event [facility] Operating Room [address] [place] [phone] Primitivo Colbert DO Cook, Erin R, CRNA 09/02/2024 9:00 AM CDT - 09/02/2024 10:[address] [facility] Operating Room [address] [place] [phone] Abiel Koo MD KNEE ARTHROPLASTY TOTAL REPLACEMENT 09/02/2024 6:14 AM CDT - 09/03/2024 5:25 PM CDT Hospital Encounter [facility] 3C Ortho Neuro [address] [place] [phone] Abiel Koo MD Status post total right knee replacement Discharge Disposition: Home or Self Care 09/02/2024 12:11 AM CDT - 09/02/2024 11:59 PM CDT Hospital Encounter [facility] Radiology OR [address] [place] [phone] Abiel Koo MD Discharge Disposition: Home or Self Care 08/31/2024 External Device Data STL ABSTRACTION Provider, Abstract 08/26/2024 1:15 PM CDT - 08/26/2024 11:59 PM CDT Hospital Encounter [facility] Pre Admission [facility] [address] [place] [address] Abiel Koo MD Discharge Disposition: Home or Self Care 08/26/2024 Travel 08/17/2024 External Device Data STL ABSTRACTION Provider, Abstract 08/10/2024 External Device Data STL ABSTRACTION Provider, Abstract 08/09/[address] [facility] Orthopedic [facility] [address] [place] [address] Abiel Koo MD from Last 3 Months Family History Medical History Relation Name Comments Breast Cancer Neg Hx Social History Tobacco Use Types Packs/Day Years Used Date Smoking Tobacco: Never Smokeless Tobacco: Never Tobacco Cessation:Counseling Given: Not Answered Alcohol Use Standard Drinks/Week Comments Not Currently 0 (1 standard drink = 0.6 oz pur e alcohol) Feeling Safe Answer Date Recorded Are you in a relationship wi th someone who hurts you emotionally and/or physically? 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 Gender Identity Not on file Sexual Orientation Not on file Last Filed Vital Signs Vital Sign Reading Time Taken Comments Blood Pressure 126/62 10/05/2024 11:36 AM CDT Pulse 63 09/03/2024 4:45 PM CDT Temperature 36.2 C (97.1 F) 09/03/2024 4:00 PM CDT Respiratory Rate 16 09/03/2024 4:00 PM CDT Oxygen Saturation 94% 09/03/2024 4:00 PM CDT Inhaled Oxygen Concentration - - Weight 95.8 kg (211 lb 3.2 oz) 10/05/2024 11:36 AM CDT Height 160 cm (5' 3 ) 10/05/2024 11:36 AM CDT Body Mass Index 37.41 10/05/2024 11:36 AM CDT Plan of Treatment Upcoming Encounters Date Type Department Care Team (Late st Contact Info) Description 11/30/2024 1:00 PM CDT Office Visit [facility] [address] [facility] [address] [place] [phone] Oleksandr Castillo MD [address] [facility] [address] [place] [phone] 09/08/2025 9:20 AM CDT Office Visit [facility] Orthopedics - Orthopedic [facility] [address] [place] [phone] Yaniv Knutson, PA-C [address] [place] [phone] Health Maintenance Due Date Last Done Comments DIABETES ANNUAL FOOT EXAM 1968 DIABETES ANNUAL RETINAL EXAM 1968 DIABETES MICROALBUMIN ANNUAL SCREEN 1968 LDL CHOLESTEROL ANNUAL 1968 DTAP/TDAP/TD VACCINES (1 - Tdap) 1969 PNEUMOCOCCAL VACCINE 50+ YEA RS (1 of 2 - PCV) 1969 COLORECTAL SCREENING 10/05/1995 Colorectal Cancer Screening 10/05/1995 FIT-DNA Q 3 years 10/05/1995 FIT/FOBT Q 1 year 10/05/1995 Flex Sig/CT Colonography Q 5 years 10/05/1995 ZOSTER VACCINE (1 of 2) 2000 RSV VACCINE (60+ or ) (1 - Risk 60-74 years 1-dose series) 2010 OSTEOPOROSIS SCREENING 10/05/2015 BREAST CANCER SCREENING 05/12/2021 05/13/19, 05/12/2020, 10/22/2019, Additional history exists INFLUENZA VACCINE (#1) 2024 DIABETES HBA1C Q 6 MONTHS 02/25/2025 08/26/2024, 10/2023 Medical Devices Implanted Type Area Third Mate Device Identifier Shelf Expiration Date Model / Serial / Lot Cement Palacos Mv Zirconium Dioxide St Lf Disp [id number] - [id number] Implanted:Qty: 1 on 09/02/2024 by Abiel Koo MD at [facility] Cement Right: Knee [employer] [id number] 08/30/2028 [id number] / / [id number] Clip Ligating Horizon Med Ti [id number] - Csc - [id number] Implanted:Qty: 1 on 10/22/2019 by Hi Alcaraz MD Clip Right: Breast TELEFLEX- WECK CLOSURE SYS 09/29/2023 [id number] / / [id number] Comp Fem Attune Poro Cr Sz 7 Rt Cmntlss 1504-01-207 - [id number] Implanted:Qty: 1 on 09/02/2024 by Abiel Koo MD at [facility] Knee Right: Knee [employer] [id number] 07/31/2034 [id number] / / [id number] Description:INCLUDED IN CAP PRICING - NO CHARGE Baseplate Tib Attune Fixed Bearing Sz 8 [id number] - [id number] Implanted:Qty: 1 on 09/02/2024 by Abiel Koo MD at [facility] Knee Right: Knee [employer] [id number] 12/31/2032 [id number] / / [id number] Description:INCLUDED IN CAP PRICING - NO CHARGE Insert Attune Fb Cr Sz7 5mm 1516-20-705 - [id number] Implanted:Qty: 1 on 09/02/2024 by Abiel Koo MD at [facility] Knee Right: Knee [employer] [id number] / / Description:INCLUDED IN CONS TRUCT PRICING--NO CHARGE. ([id number]) Attune Fb Cementle Implanted:Qty: 1 on 09/02/2024 by Abiel Koo MD at [facility] Right: Knee [id number] / / Procedures Procedure Name Priority Date/Time Associated Diagnosis Comments XR KNEE 3 VW RIGHT Routine 10/05/2024 11 :21 AM CDT Status post total right knee replacement TELEMETRY REPORT 09/04/2024 2:22 AM CDT POC GLUCOSE Routine 09/03/2024 7:43 AM CDT BASIC METABOLIC PANEL Routine 09/03/2024 3:47 AM CDT CBC WITH DIFFERENTIAL Routine 09/03/2024 3:47 AM CDT TSH Routine 09/02/2024 10:06 PM CDT POC GLUCOSE Routine 09/02/2024 8:47 PM CDT POC GLUCOSE Routine 09/02/2024 3:21 PM CDT EKG 12-LEAD Routine 09/02/2024 11:33 AM CDT XR KNEE 1 OR 2 VW RIGHT Routine 09/02/2024 11:27 AM CDT Pain POC GLUCOSE Routine 09/02/2024 11:04 AM CDT SC ANESTHESIA BLOCK PB PLACEHOLDER CHARGE Routine 09/02/2024 9:37 AM CDT ANESTHESIA AIRWAY Routine 09/02/2024 9:2 5 AM CDT SC ARTHRP KNE CONDYLE&PLATU MEDIAL&LAT COMPARTMENTS 09/02/2024 9:00 AM CDT Osteoarthritis of right knee, unspecified osteoarthritis type POC GLUCOSE Routine 09/02/2024 7:18 AM CDT HEMOGLOBIN A1C Routine 08/26/2024 2:13 PM CDT COMPREHENSIVE METABOLIC PANEL Routine 08/26/2024 2:13 PM CDT CBC WITH DIFFERENTIAL Routine 08/26/2024 2:13 PM CDT EKG 12-LEAD Routine 08/26/2024 2:10 PM CDT MAMMO 3D ROBERT DIAGNOSTIC BILAT W OR WO CAD Routine 05/12/2020 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 Noted is a DePuy attune press-fit femur with cemented tibia, cruciate retaining, in excellent position without signs of loosening or implant failure. Abiel Koo MD DIAGNOSTIC IMAGING [facility] Final Result * TELEMETRY REPORT (09/04/2024 2:22 AM CDT) us Provider Scanning ECG ORDERABLES Final Result * (ABNORMAL) POC GLUCOSE (09/03/2024 7:43 AM CDT) Only the most recent of5 resultswithin the time period is included. GLUCOSE POC 160(H) 74 - 99 mg/dL 09/03/2024 7:43 AM CDT [facility] SPECIMEN SOURCE, GLUCOSE POC Capillary 09/03/2024 7:43 AM CDT [facility] Blood, whole 09/03/2024 7:43 AM CDT 09/03/2024 7:52 AM CDT us Abiel Koo MD POINT OF CARE TESTING F inal Result [facility] G # [id number] [address] [facility] [place] [place] [address] * (ABNORMAL) CBC WITH DIFFERENTIAL (09/03/2024 3:47 AM CDT) Only the most recent of2 resultswithin the time period is included. Pathologist [facility] WBC 10.4 4.8 - 10.8 K/uL 09/03/2024 4:18 AM CDT [facility] RBC 3.38(L) 4.20 - 5.40 M/uL 09/03/2024 4:18 AM CDT [facility] HEMOGLOBIN 9.6(L) 12.0 - 16.0 g/dL 09/03/2024 4:18 AM CDT [facility] HEMATOCRIT 29.3(L) 36.0 - 46.0 % 09/03/2024 4:18 AM CDT [facility] MCV 86.7 84.0 - 103.0 fL 09/03/2024 4:18 AM CDT [facility] MCH 28.4 27.0 - 34.0 pg 09/03/2024 4:18 AM CDT [facility] MCHC 32.8 30.0 - 35.0 g/dL 09/03/2024 4:18 AM CDT [facility] PLATELETS 147 140 - 440 K/uL 09/03/2024 4:18 AM CDT [facility] MPV 10.2 8.9 - 12.8 fL 09/03/2024 4:18 AM CDT [facility] RDW 13.7 11.0 - 14.5 % 09/03/2024 4:18 AM CDT [facility] RDW-STDEV 43.0 37.0 - 54.0 fL 09/03/2024 4:18 AM CDT [facility] NEUTROPHILS 87(H) 42 - 75 % 09/03/2024 4:18 AM CDT [facility] LYMPHOCYTES 7(L) 24 - 44 % 09/03/2024 4:18 AM CDT [facility] MONOCYTES 5 2 - 10 % 09/03/2024 4:18 AM CDT [facility] EOSINOPHILS 0 0 - 7 % 09/03/2024 4:18 AM CDT [facility] BASOPHILS 0 0 - 1 % 09/03/2024 4:18 AM CDT [facility] IMMATURE GRANULOCYTES 1 0 - 2 % 09/03/2024 4:18 AM CDT [facility] NEUTROPHIL ABSOLUTE 9.02(H) 2.00 - 8.00 K/uL 09/03/2024 4:18 AM CDT [facility] LYMPHOCYTE ABSOLUTE 0.77(L) 1.20 - 4.00 K/uL 09/03/2024 4:18 AM CDT [facility] MONOCYTE ABSOLUTE 0.56 0.10 - 0.60 K/uL 09/03/2024 4:18 AM CDT [facility] EOSINOPHIL ABSOLUTE 0.00 0.00 - 0.70 K/uL 09/03/2024 4:18 AM CDT [facility] BASOPHILS ABSOLUTE 0.01 0.00 - 0.20 K/uL 09/03/2024 4:18 AM CDT [facility] IMMATURE GRANULOCYTES ABSOLUTE 0.05 0.00 - 0.10 K/uL 09/03/2024 4:18 AM CDT [facility] SMEAR REVIEWED: NA - Not Applicable 09/03/2024 4:18 AM T [facility] Blood Venipuncture / Unknown 09/03/2024 3:47 AM CDT 09/03/2024 4:07 AM CDT us Navjot GARDUNO HEMATOLOGY ORDERABLES Final Re sult [facility] CLIA # [id number] [address] [address] [place] [address] * (ABNORMAL) BASIC METABOLIC PANEL (09/03/2024 3:47 AM CDT) SODIUM 139 136 - 145 mmol/L 09/03/2024 4:44 AM T [facility] POTASSIUM 3.9 3.5 - 5.1 mmol/L 09/03/2024 4:44 AM [facility] CHLORIDE 106 98 - 107 mmol/L 09/03/2024 4:44 AM T [facility] CO2 19(L) 22 - 29 mmol/L 09/03/2024 4:44 AM T [facility] CALCIUM 8.5(L) 8.8 - 10.2 mg/dL 09/03/2024 4:44 AM [facility] BUN 23 8 - 23 mg/dL 09/03/2024 4:44 AM [facility] CREATININE 1.05(H) 0.51 - 0.95 mg/dL 09/03/2024 4:44 AM [facility] Comment:The GFR result is no t clinically significant on patients <18 or >70 years of age. GLUCOSE 187(H) 74 - 99 mg/dL 09/03/2024 4:44 AM [facility] GFR 56 mL/min/1. 73 sq meter 09/03/2024 4:44 AM [facility] Comment:eGFR calculated with 2020 CKD-EPI equation. Vegetarian diet, extremely high or low muscle mass, and may affect results. Cystatin C with Glomerular Filtration Rate is a suitable alternative for these patients. ANION GAP 14 9 - 20 mmol/L 09/03/2024 4:44 AM [facility] Blood Venipuncture / Unknown 09/03/2024 3:47 AM CDT 09/03/2024 4:07 AM CDT us Navjot GARDUNO CHEMISTRY ORDERABLES Final Res ult [facility] CLIA # [id number] [address] [place] [address] * TSH (09/02/2024 10:06 PM CDT) TSH 0.62 0.27 - 4.20 uIU/mL 09/02/2024 10:54 PM CDT [facility] Blood Venipuncture / Unknown 09/02/2024 10:06 PM CDT 09/02/2024 10:16 PM CDT us Brittaney Canales MD CHEMISTRY ORDERAB LES Final Result [facility] CLIA # [id number] [address] [address] * EKG 12-LEAD (09/02/2024 11:33 AM CDT) Only the most recent of2 resultswithin the time period is included. 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 : 1950 Requested By: Order Number: [id number] Reading MD: Deanna Foster Measurements Intervals [place] Rate: 64 P: 56 SC: 180 QRS: 7 QRSD: 88 T: 40 QT: 430 QTc: 443 Interpretive Statements Normal sinus rhythm with sinus arrhythmia Low voltage QRS Borderline ECG Electronically Signed On 09-02-2024 14:16:15 CDT by Deanna Foster us Primitivo Colbert DO ECG ORDERABLES Final R esult INTERFACE SYSTEM Refer to clinic/hospital department * XR KNEE 1 OR 2 VW RIGHT (09/02/2024 11:27 AM CDT) Anatomical Region Laterality Modality Lower Extremity Computed Radiogr aphy 09/02/2024 11:2 7 AM CDT Impressions 09/02/2024 11:52 AM CDT Impression: The knee replacement prosthesis shows excellent anatomic alignment. Narrative 09/02/2024 11:52 AM CDT Exam: XR KNEE 1 OR 2 VW RIGHT Date/Time of Exam: 09/02/2024 11:27 AM Reason For Exam: See Diagnosis Diagnosis: Pain AP and lateral views of the right knee are submitted. A total knee replacement prosthesis is present. The prosthesis shows excellent anatomic alignment. No acute fracture or dislocation is seen. Procedure Note Mark Ramirez MD - 09/02/2024 Exam: XR KNEE 1 OR 2 VW RIGHT Date/Time of Exam: 09/02/2024 11:27 AM Reason For Exam: See Diagnosis Diagnosis: Pain AP and lateral views of the right knee are submitted. A total knee replacement prosthesis is present. The prosthesis shows excellent anatomic alignment. No acute fracture or dislocation is seen. Impression: The knee replacement prosthesis shows excellent anatomic alignment. us Abiel Koo MD DIAGNOSTIC IMAGING [place] Final Result * SC ANESTHESIA BLOCK PB PLACEHOLDER CHARGE (09/02/2024 9:37 AM CDT) Narrative Primitivo Colbert DO - 09/02/2024 9:37 AM CDT Primitivo Colbert DO 09/02/2024 9:37 AM Spinal Block Patient location during procedure: OR Reason for block: at surgeon's request and primary anesthetic Staffing Performed: Anesthesiologist (/) Authorized by: Primitivo Colbert DO Performed by: Primitivo Colbert DO Preanesthetic Checklist Completed: patient identified, IV checked, site marked, risks and benefits discussed, surgical consent, monitors and equipment checked, pre-op evaluation and timeout performed Spinal Hand hygiene performed prior to procedure Patient was prepped and draped in usual sterile fashion Time out performed Mask worn Patient position: Sitting Prep: ChloraPrep and site prepped and draped Local Anesthetic: Lidocaine 1% without epinephrine Patient monitoring: Continuous pulse oximetry, Heart rate, Non-invasive blood pressure and EKG Approach: Midline Location: L3-4 Injection Technique: Single-shot [place] Identification: palpation technique Number of Attempts: 1 Spinal Needle Needle type: Pencil-tip Needle gauge: 25 G Needle length: 10 cm Assessment Outcome: Complete Additional Notes Risks and benefits for spinal anesthesia discussed with the patient and questions answered. Patient placed in the sitting position with standard monitors applied. Sterile prep with chloraprep, sterile drape, and sterile gloves. 3mL 1% lidocaine infiltrated at L3-L4. Introducer and 25g dana spinal needle used. Good CSF flow. No blood. No paresthesia. 1.6 mL hyperbaric bupivacaine injected slowly. Patient tolerated the procedure well. No complications noted. Primitivo Colbert DO Primitivo Colbert DO PROCEDURE/MINOR SURGICA L ORDERABLES Final Result * Airway (09/02/2024 9:25 AM CDT) Coleen Cooper CRNA - 09/02/2024 9:25 AM CDT Coleen Castillo CRNA 09/02/2024 9:52 AM Airway Date/Time: 09/02/2024 9:25 AM Location: OR Patient Identity Confirmed by: Verbally with patient and armband Staffing Performed: KANIKA/CUCA Authorized by: Primitivo Colbert DO Performed by: Coleen Castillo CRNA Indications and Patient Condition: Plan to extubate at end of case: Yes Final Airway Details: Final Airway Type: Mask Primitivo Colbert DO PROCEDURE/MINOR SURGICA L ORDERABLES Final Result * HEMOGLOBIN A1C (08/26/2024 2:13 PM CDT) HEMOGLOBIN A1C 5.6 <=5.6 % 08/26/2024 3:17 PM CDT [facility] EST. AVG GLUCOSE, A1C 114 mg/dL 08/26/2024 3:17 PM CDT [facility] Blood Venipuncture / Unknown 08/26/2024 2:13 PM CDT 08/26/2024 3:01 PM CDT Narrative [facility] - 08/26/2024 3:17 PM CDT HGB A1C INTERPRETATION NORMAL: <5.7% PRE-DIABETES: 5.7 - 6.4% DIABETES: 6.5% OR GREATER us Benji Sinha MD CHEMISTRY ORDERABLES Final Resu lt [facility] CLIA [facility][id number] [facility] [place] [address] * (ABNORMAL) COMPREHENSIVE METABOLIC PANEL (08/26/2024 2:13 PM CDT) SODIUM 139 136 - 145 mmol/L 08/26/2024 2:39 PM CDT [facility] POTASSIUM 4.1 3.4 - 4.5 mmol/L 08/26/2024 2:39 PM CDT [facility] CHLORIDE 106 98 - 107 mmol/L 08/26/2024 2:39 PM CDT [facility] CO2 22 22 - 29 mmol/L 08/26/2024 2:39 PM CDT [facility] CALCIUM 9.4 8.6 - 10.0 mg/dL 08/26/2024 2:39 PM [facility] BUN 24(H) 8 - 23 mg/dL 08/26/2024 2:39 PM [facility] CREATININE 1.01(H) 0.51 - 0.95 mg/dL 08/26/2024 2:39 PM [facility] Comment:The GFR result is no t clinically significant on patients <18 or >70 years of age. GLUCOSE 107(H) 74 - 99 mg/dL 08/26/2024 2:39 PM [facility] Comment:Reference range appl ies to fasting patients only. TOTAL PROTEIN 6.4(L) 6.6 - 8.7 g/dL 08/26/2024 2:39 PM [facility] ALBUMIN 3.7(L) 4.0 - 4.9 g/dL 08/26/2024 2:39 PM [facility] BILIRUBIN TOTAL 0.4 0.0 - 1.0 mg/dL 08/26/2024 2:39 PM [facility] ALKALINE PHOSPHATASE 60 35 - 104 U/L 08/26/2024 2:39 PM [facility] AST 13 5 - 32 U/L 08/26/2024 2:39 PM [facility] ALT <5(L) 5 - 33 U/L 08/26/2024 2:39 PM [facility] GFR 59 mL/min/1.7 3 sq meter 08/26/2024 2:39 PM [facility] Comment:eGFR calculated with 2020 CKD-EPI equation. Vegetarian diet, extremely high or low muscle mass, and may affect results. Cystatin C with Glomerular Filtration Rate is a suitable alternative for these patients. 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 The patient had a core biopsy on the right at the outside facility which was high risk and she had needle localization and open excisional biopsy on the right on 10/22/2019 which showed no malignancy. There was residual atypical ductal hyperplasia and papillomatosis and the biopsy site was seen as well. At the time of the outside workup there was an asymmetry identified in the upper outer quadrant on the left and it was recommended that the patient have a six-month follow-up mammogram on the left which would have been due in January of 2020 but the patient did not return for the follow-up. 3D MLO, medial to lateral, and CC digital tomosynthesis images were acquired and synthesized 2D images (C view) were generated. This digital mammogram was also analyzed by the Computer Aided Detection System (CAD). Bilateral 2-D craniocaudal and oblique views were obtained as well. Breast Density: The breasts are almost entirely fatty. Comparison is made with prior exams of 10/22/2019, 09/02/2019 and 07/15/2019. Apparently no older exams are available. The surgical scar is marked upper outer on the right. There is minimal postoperative change. No suspicious masses or calcifications are seen on the right. No change is seen on the right other than the postoperative change. On the left the only discrete abnormality is a small benign-appearing asymmetry in the upper outer quadrant at the 1:00 to 2:00 position located 11 to 12 cm from the nipple. This is stable compared with the original mammogram of 07/15/2019 which is approximately 10 months ago. No suspicious findings are seen on the left. Left breast ultrasound: The left breast was scanned from 1:00 to 3:00. A flattened elongated benign-appearing hypoechoic nodule is identified at the 1:00 position 10 cm from the nipple measuring 7 x 1 x 4 mm with no internal blood flow. This has a benign appearance and does seem to correspond with the mammographic finding. I would simply recommend a short interval follow-up in six months. The patient was given a verbal and written report. Impression: The patient is status post benign surgical excisional biopsy on the right. The small area of asymmetry on the left is stable. I would recommend a follow-up left diagnostic mammogram in six months' time. [id number] Procedure Note Coco Logan MD - 08/07/2020 BILATERAL DIAGNOSTIC MAMMOGRAM AND LEFT BREAST ULTRASOUND 05/12/2020 HISTORY: The patient is 69 years of age and is here for follow-up after having an outside mammogram and ultrasound in 2019. The patient had a core biopsy on the right at the outside facility which was high risk and she had needle localization and open excisional biopsy on the right on 10/22/2019 which showed no malignancy. There was residual atypical ductal hyperplasia and papillomatosis and the biopsy site was seen as well. At the time of the outside workup there was an asymmetry identified in the upper outer quadrant on the left and it was recommended that the patient have a six-month follow-up mammogram on the left which would have been due in January of 2020 but the patient did not return for the follow-up. 3D MLO, medial to lateral, and CC digital tomosynthesis images were acquired and synthesized 2D images (C view) were generated. This digital mammogram was also analyzed by the Computer Aided Detection System (CAD). Bilateral 2-D craniocaudal and oblique views were obtained as well. Breast Density: The breasts are almost entirely fatty. Comparison is made with prior exams of 10/22/2019, 09/02/2019 and 07/15/2019. Apparently no older exams are available. The surgical scar is marked upper outer on the right. There is minimal postoperative change. No suspicious masses or calcifications are seen on the right. No change is seen on the right other than the postoperative change. On the left the only discrete abnormality is a small benign-appearing asymmetry in the upper outer quadrant at the 1:00 to 2:00 position located 11 to 12 cm from the nipple. This is stable compared with the original mammogram of 07/15/2019 which is approximately 10 months ago. No suspicious findings are seen on the left. Left breast ultrasound: The left breast was scanned from 1:00 to 3:00. A flattened elongated benign-appearing hypoechoic nodule is identified at the 1:00 position 10 cm from the nipple measuring 7 x 1 x 4 mm with no internal blood flow. This has a benign appearance and does seem to correspond with the mammographic finding. I would simply recommend a short interval follow-up in six months. The patient was given a verbal and written report. Impression: The patient is status post benign surgical excisional biopsy on the right. The small area of asymmetry on the left is stable. I would recommend a follow-up left diagnostic mammogram in six months' time. [id number] Hi Alcaraz MD MAMMO ORDERABLES Final Result from Last 3 Months or Most Recently Relevant to Health Maintenance [place] [facility] Advance Directives For more information, please contact: [phone] * Default Full Code - Needs Discussion (Latest Code Status on File) Date Activated Date Inactivated Comments 09/02/2024 6:54 PM 09/03/2024 7:27 PM Care Teams Arts Manager Relationship Specialty Start Date End Date Mtnv, External Provider [address] [place] [address] PCP - General Family Practice 10/19/19
--- OUTSIDE RECORDS SUMMARY | 2024-10-21 17:25 | XMS_ITS | Encounter Summary ---
Author Organization [facility] Address [address] [place] [address] Care Team Providers Care Reinforcing Steel Worker Wire Mesh Name Role Phone Mtnv, External Provider Primary Care Provider Un available Reason for Referral * Radiology Services (Routine) - Closed Specialty Diagnoses / Procedures Referred By Contac t Referred To Contact Radiology Diagnoses Abnormal mammogram Procedures MAMMO DIAG BILAT 3D ROBERT W OR WO CAD MAMMO DIAG UNI RIGHT 3D ROBERT W OR WO CAD CHG DIAGNOSTIC MAMMOGRAPHY COMPUTER-AIDED DETCJ UNI CHG DIGITAL BREAST TOMOSYNTHESIS UNILATERAL CHG DIAGNOSTIC MAMMOGRAPHY COMPUTER-AIDED DETCJ BI CHG DIGITAL BREAST TOMOSYNTHESIS BILATERAL Hi Alcaraz MD Phone: tel: fax: [facility] [address] [facility] [address] [place] [address] Phone: tel: fax: Referral ID Status Reason Start Date Expiration Date V isits Requested Visits Authorized [id number] Closed [facility] to Schedule 04/06/2020 05/07/2021 1 1 HR DIVERSITY Encounter Details Date Type Department Care Team (Late st Contact Info) Description 05/12/2020 Ancillary Orders [facility] Pre-Registration [place] CALL TO MAKE APPOINTMENT ONLY [address] [place] [address] Hi Alcaraz MD [address] [facility] [address] [place] [address] Abnormal mammogram Social History Tobacco Use Types [...] or suspected to have Coronavirus / COVID-19? No / Unsure 05/12/2020 10:07 AM VP HR DIVERSITY documented as of this encounter Plan of Treatment Not on file documented as of this encounter Results * (ABNORMAL) MAMMO DIAG BILAT 3D ROBERT W OR WO CAD (05/12/2020 11:55 AM VP HR DIVERSITY) Anatomical Region Laterality Modality Breast Bilateral Mammography 05/12/2020 11:5 5 AM VP HR DIVERSITY Narrative 05/15/2020 9:46 AM CDT BILATERAL DIAGNOSTIC [...] left diagnostic mammogram in six months' time. [id number] us Hi Alcaraz MD MAMMO ORDERABLES Final Result documented in this encounter Visit Diagnoses Diagnosis Abnormal mammogram Abnormal mammogram, unspecified Abnormal mammogram Abnormal mammogram, unspecified documented in this encounter Care Teams Reinforcing Steel Worker Wire Mesh Relationship Specialty Start Date End Date Mtnv, External Provider [address] [place] [address] PCP - General Family Practice 10/19/19 documented as of this encounter
--- OUTSIDE RECORDS SUMMARY | 2024-10-21 17:25 | XMS_ITS | Encounter Summary ---
Author Organization [facility] Address [address] [place] [address] Care Team Providers Care Learning Program Manager Name Role Phone Mtnv, External Provider Primary Care Provider Un available Reason for Referral * Radiology Services (Routine) - Closed Specialty Diagnoses / Procedures Referred By Contac t Referred To Contact Radiology Diagnoses Atypical ductal hyperplasia of right breast Procedures MAMMO DIAG UNI RIGHT 3D ROBERT W OR WO CAD CHG DIAGNOSTIC MAMMOGRAPHY COMPUTER-AIDED DETCJ UNI CHG DIGITAL BREAST TOMOSYNTHESIS UNILATERAL Hi Alcaraz MD Phone: tel: fax: [facility] [address] [facility] [address] [place] [address] Phone: tel: fax: Referral ID Status Reason Start Date Expiration Date Visits Requested Visits Authorized [id number] Closed Performing Department To Schedule (SGF) 10/22/2019 11/21/2020 1 1 Encounter Details Date Type Department Care Team (Late st Contact Info) Description 10/22/2019 Ancillary Orders [facility] Gen Spec Surg [place] [address] [place] [address] Hi Alcaraz MD [address] [place] [facility] [address] [place] [address] Atypical ductal hyperplasia of right [...] have Coronavirus / COVID-19? No / Unsure 10/22/2019 6:58 AM CDT documented as of this encounter Plan of Treatment Not on file documented as of this encounter Results * MAMMO DIAG UNI RIGHT 3D ROBERT W OR WO CAD (10/22/2019 8:14 AM CDT) Anatomical Region Laterality Modality Breast Right Mammography 10/22/2019 7:22 AM CDT Impressions 10/22/2019 11:07 AM CDT : The marker placed at the time of biopsy does appear to be within the area to be excised upper outer mid depth, as noted. No other area of suspicion is suggested. Ultrasound-guided preoperative needle localization for surgical excisional biopsy was performed at this appointment. [id number] Narrative 10/22/2019 11:07 AM CDT RIGHT DIAGNOSTIC MAMMOGRAM 3-D ROBERT WITH OR WITHOUT CAD: 3-D robert synthesis CC and MLO imaging is presented with straight mediolateral digital image, and compared with previous outside mammograms 07/15/2019 and additional bilateral mammographic images 09/02/2019. She is having preoperative needle localization for surgical excision of a benign but high risk lesion diagnosed at core biopsy at the outside facility. Breast tissue is of fatty density. The nodular density anterior upper outer is again noted when compared with previously, and appears somewhat irregular compared with previous mammogram, probably due to postbiopsy changes. The metallic marker placed at the time of biopsy is within the area on both views. No other area of suspicion is suggested. This digital mammogram was also analyzed by the Computer Aided Detection System (CAD), [employer], Version 8.3. us Hi Alcaraz MD MAMMO ORDERABLES Final Result documented in this encounter Visit Diagnoses Diagnosis Atypical ductal hyperplasia of right breast documented in this encounter Care Teams Learning Program Manager Relationship Specialty Start Date End Date Mtnv, External Provider [address] [place] [address] PCP - General Family Practice 10/19/19 documented as of this encounter
--- OUTSIDE RECORDS SUMMARY | 2024-10-21 17:25 | XMS_ITS | Encounter Summary ---
Author Organization [facility] Address [address] [place] [address] Care Team Providers Care Wireline Field Operator Name Role Phone Mtnv, External Provider Primary Care Provider Un available Reason for Referral * Radiology Services (Routine) - Closed Specialty Diagnoses / Procedures Referred By Contac t Referred To Contact Radiology Diagnoses Abnormal mammogram Procedures MAMMO BREAST US LEFT LTD Hi Alcaraz MD Phone: tel: fax: [facility] Breast [place] [address] [facility] [address] [place] [address] Phone: tel: fax: Referral ID Status Reason Start Date Expiration Date Visits Re quested Visits Authorized [id number] Closed 05/12/2020 06/12/2021 1 1 GER E LEARNING Encounter Details Date Type Department Care Team (Late st Contact Info) Description 05/12/2020 Ancillary Orders [facility] Pre-Registration [place] CALL TO MAKE APPOINTMENT ONLY [address] [place] [address] Hi Alcaraz MD [address] [facility] [address] [place] [address] Abnormal mammogram Social History Tobacco [...] COVID-19? No / Unsure 05/12/2020 10:07 AM MANAGER E LEARNING documented as of this encounter Plan of Treatment Not on file documented as of this encounter Results * (ABNORMAL) MAMMO BREAST US LEFT LTD (05/12/2020 12:28 PM MANAGER E LEARNING) Anatomical Region Laterality Modality Left Ultrasound 05/12/2020 12:2 8 PM MANAGER E LEARNING Narrative 05/15/2020 9:46 AM CDT BILATERAL DIAGNOSTIC [...] left diagnostic mammogram in six months' time. [id number] Hi Alcaraz MD MAMMO ORDERABLES Final Result documented in this encounter Visit Diagnoses Diagnosis Abnormal mammogram Abnormal mammogram, unspecified Abnormal mammogram Abnormal mammogram, unspecified documented in this encounter Care Teams Wireline Field Operator Relationship Specialty Start Date End Date Mtnv, External Provider [address] [place] [address] PCP - General Family Practice 10/19/19 documented as of this encounter
--- OUTSIDE RECORDS SUMMARY | 2024-10-21 17:25 | XMS_ITS | Encounter Summary ---
Author Organization [facility] Address [address] [place] [address] Care Team Providers Care Test Borer Name Role Phone Mtnv, External Provider Primary Care Provider Un available Encounter Details Date Type Department Care Team (Late Contact Info) Description 10/18/2024 Abstract [facility] [address] [facility] [address] [place] [address] Emily Cisse APN [address] [place] [address] Social History Tobacco Use Types Packs/Day Years [...] on file Legal Sex Female 3:49 AM APPLICATIONS SPECIALIST Gender Identity Not on file Sexual Orientation Not on file documented as of this encounter Plan of Treatment Upcoming Encounters Date Type Department Care Team (Late st Contact Info) Description 11/30/2024 1:00 PM CDT Office Visit [facility] [address] [facility] [address] [place] [address] Oleksandr Castillo MD [address] [place] [address] 09/08/2025 9:20 AM CDT Office Visit [facility] [address] [place] [address] Yaniv Knutson, PA-C [address] [place] [address] documented as of this encounter Visit Diagnoses Not on filedocumented in this encounter Care Teams Test Borer Relationship Specialty Start Date End Date Mtnv, External Provider [address] [place] [address] PCP - General Family Practice 10/19/19 documented as of this encounter
--- OUTSIDE RECORDS SUMMARY | 2024-10-21 17:26 | XMS_ITS | Clinical Summary ---
Author Organization [facility] Address [address] [place] [address] Phone Care Team Providers Care Patient Svcs Mgr Name Role Phone Mtnv, External Provider Primary Care Provider Un available Allergies Active Allergy Reactions Criticality Noted Date Comments Dye Itching 10/05/2019 Penicillins Cough 10/05/2019 Medications loratadine (CLARITIN) 10 mg tablet Take 10 mg by mouth daily. Active lisinopriL (PRINIVIL) 5 mg tablet Take 5 mg by mouth daily. Active simvastatin (ZOCOR) 20 mg tablet Take 20 mg by mouth daily with supper. Active cinnamon bark (CINNAMON ORAL) Take by mouth. Active OTHER Provider please include Medication name, dose, route and frequency Active HYDROcodone-acet aminophen ([place]) 7.5-325 mg TabletIndication s:Atypical ductal hyperplasia of right breast Take 1 Tablet by mouth every 4 hours as needed for Pain. Max Daily Amount: 6 Tablets 20 Tablet 0 Active Active Problems Problem Noted Date Diagnosed Date Atypical ductal hyperplasia of right breast 06/2019 At high risk for breast canc er (25% lifetime risk using TC8) 10/05/2019 Family History Medical History Relation Name Comments [...] Sign Reading Time Taken Comments Blood Pressure 128/70 05/08/2020 1:27 PM INSPECTOR Pulse 74 05/08/2020 1:27 PM INSPECTOR Temperature 36.7 C (98 F) 05/08/2020 1:27 PM INSPECTOR Respiratory Rate 22 10/28/2019 2:56 PM CDT Oxygen Saturation 99% 05/08/2020 1:27 PM INSPECTOR Inhaled Oxygen Concentration - - Weight 124.3 kg (274 lb) 05/08/2020 1:27 PM INSPECTOR Height 165.1 cm (5' 5 ) 05/08/2020 1:27 PM INSPECTOR Body Mass Index 45.6 05/08/2020 1:27 PM INSPECTOR Plan of Treatment Health Maintenance Due Date Last Done Comments DTAP/TDAP/TD VACCINES (1 - Tdap) 1969 PNEUMOCOCCAL VACCINE 50+ YEA RS (1 of 2 - PCV) 1969 COLORECTAL SCREENING 10/05/1995 Colorectal Cancer Screening 10/05/1995 FIT-DNA Q 3 years 10/05/1995 FIT/FOBT Q 1 year 10/05/1995 Flex Sig/CT Colonography Q 5 years 10/05/1995 ZOSTER VACCINE (1 of 2) 2000 OSTEOPOROSIS SCREENING 10/05/2015 BREAST CANCER SCREENING 05/12/2021 05/13/19 21, 10/22/2019, 09/02/2019, Additional history exists INFLUENZA VACCINE (#1) 2024 RSV VACCINE (60+ or ) (1 - 1-dose 75+ series) 2025 Medical Devices Implanted Type [employer] Flatbed Truck Driver Device Identifier Shelf Expiration Date Model / Serial / Lot Clip Ligating Horizon Med Ti [id number] - [facility] [place] - [id number] Implanted:Qty: 1 on 10/22/2019 by Hi Alcaraz MD at [facility] Clip Right: Breast TELEFLEX- WECK CLOSURE SYS 09/29/2023 [id number] / / [id number] Procedures Procedure Name Priority Date/Time Associated Diagnosis Comments MAMMO 3D ROBERT DIAGNOSTIC BILAT W OR WO CAD Routine 05/12/2020 11:55 AM INSPECTOR Abnormal mammogram from Last 3 Months or Most Recently Relevant to Health Maintenance Results * (ABNORMAL) MAMMO DIAG BILAT 3D ROBERT W OR WO CAD (05/12/2020 11:55 AM INSPECTOR) Anatomical Region Laterality Modality Breast Bilateral Mammography 05/12/2020 11:5 5 AM INSPECTOR Narrative 05/15/2020 9:46 AM CDT BILATERAL DIAGNOSTIC [...] left diagnostic mammogram in six months' time. [id number] us Hi Alcaraz MD MAMMO ORDERABLES Final Result from Last 3 Months or Most Recently Relevant to Health Maintenance Insurance [facility] Advance Directives For more information, please contact: [phone] * Full Code (Latest Code Status on File) Date Activated Date Inactivated Comments 10/22/2019 8:38 AM 10/22/2019 3:16 PM Care Teams Patient Svcs Mgr Relationship Specialty Start Date End Date Mtnv, External Provider [address] [place] [address] PCP - General Family Practice 10/19/19
--- OUTSIDE RECORDS SUMMARY | 2024-10-21 17:26 | XMS_ITS | Encounter Summary ---
Author Organization [place] [facility], [facility] Address [address] [facility] [address] [place] [address] Phone Care Team Providers Care Obstetrics Gyn Name Role Phone Emily Cisse APN Primary Care Provider [phone] Encounter Details Date Type Department Care Team (Late Contact Info) Description 07/23/2023 Orders Only [place] [facility] [address] [facility] [address] [place] [address] Type 2 diabetes mellitus with diabetic chronic kidney disease (HCC); Chronic kidney disease, stage 2 (mild) Social History Tobacco Use Types Packs/Day Years Used Date Smoking Tobacco: Never Assessed Comments Unknown Sex and Gender Information Value Date Recorded Sex Assigned at Not on file Legal Sex Female 9:59 AM EDT Gender Identity Not on file Sexual Orientation Not on file documented as of this encounter Plan of Treatment Upcoming Encounters Date Type Department Care Team (Late st Contact Info) Description 01/03/2025 10:00 AM MRI TECHNOLOGIST Office Visit [place] [facility] [address] [place] [address] Joyce Hu NP [address] [facility] [address] [place] [address] documented as of this encounter Visit Diagnoses Diagnosis Type 2 diabetes mellitus with diabetic chronic kidney disease (HCC) Chronic kidney disease, stage 2 (mild) documented in this encounter Care Teams Obstetrics Gyn Relationship Specialty Start Date End Date Emily Cisse APN [address] [place] [address] PCP - General Nurse Practitioner 07/22/23 documented as of this encounter
--- OUTSIDE RECORDS SUMMARY | 2024-10-21 17:26 | XMS_ITS | Patient Health Record ---
Author Organization [facility], [facility] Address [address] [place] [address] Care Team Providers Care Soft Tile Setter Name Role Phone Emily Cisse APN Primary Care Provider Deepti FAUSTIN BOBBY Unavailable [phone] MELISSA VILLAFUERTE Unavailable [phone] Allergies Allergen (clinical drug ingredient) Drug/Non Drug Allergy documented on EMR Reaction Allergy Type Onset Date Status Iodine hives Drug Allergy Active Results Component Value Reference Range Notes Urinalysis, Routine Reviewed date:07/29/2024 03:40:37 PM Interpretation: Performing Lab: Notes/Report: Urine-Color yellow Appearance very cloudy Glucose 2+ Bilirubin - Ketones - Specific [place] 1.015 Occult Blood trace pH 6.0 Urine Protein trace Urobilinogen,Semi-Qn - Nitrite, Urine positive WBC Esterase 3+ Urinalysis Gross Exam - Reason For Referral No Information Medications Medication SIG (Take, Route, Frequency, Duration) Notes Start Date End Date Status Osteo Bi-Flex Adv Triple St Active Bactrim DS 800-160 MG 1 tablet Orally every 12 hrs; Duration: 10 day(s) 03/14/2011 Not-Taking [place] 450 MG as directed Orally Active methylPREDNISolone 32 MG as directed Orally every 12 hrs; Duration: 1 days Take one tablet 12 hours prior to contrast media and then one tablet 2 hours prior to contrast media Not-Taking Alendronate Sodium 70 MG 1 tablet 30 minutes before the first food, beverage or medicine of the day with plain water Orally Active Albuterol Sulfate (2.5 MG/3ML) 0.083% 3 mL as needed Inhalation every 6 hrs Active Womens 50+ Multi Vitamin Active Farxiga 5 MG 1 tablet Orally Once a day Active Ondansetron 4 MG 1 tablet on the tongue and allow to dissolve Orally Once a day Active diphenhydrAMINE HCl 50 MG 1 capsule one hour prior to contrast media Orally Once a day; Duration: 1 day take one capsule one hour prior to contrast media Not-Taking Calcium Active Lisinopril 5 MG 2 tablets Orally Once a day Active Eliquis 5 MG as directed Orally Active traMADol HCl 50 MG 1 tablet as needed Orally Once a day Active Problems Problem Type SNOMED Code ICD Code Onset Dates Problem Status W/U Status Risk Notes Problem Urinary incontinence (525751923) Urinary incontinence (R32) Active confirmed Problem Chronic renal failure syndrome (27362283) Chronic kidney disease, unspecified CKD stage (N18.9) Active confirmed Problem Renal cyst (553481405) Renal cyst (N28.1) Active confirmed Vital Signs Heart Rate 89 /min 07/29/2024 Blood pressure diastolic 66 mm Hg 07/29/2024 Height-cm 160.02 cm 07/29/2024 Weight-kg 96.16 kg 07/29/2024 Height 63 in 07/29/2024 Blood pressure systolic 101 mm Hg 07/29/2024 Weight 212 lbs 07/29/2024 BMI 37.55 kg/m2 07/29/2024 Procedures Procedure Date Ordered Date Performed Result Body Sit e Bladder Scan 07/29/2024 N/A Encounters Encounter Location Date Provider Diagnosis [facility] [address] [place] [address] 07/29/2024 MELISSA VILLAFUERTE Chronic kidney disease, unspecified CKD stage N18.9 ; Renal cyst N28.1 ; Urinary incontinence R32 and Asymptomatic bacteriuria R82.71 [facility] [address] [place] [address] 06/18/2024 MELISSA VILLAFUERTE Assessments Encounter Date Diagnosis (ICD Code) Assessment Notes Treatment Notes Treatment Clinical Notes Section Notes 07/29/2024 Chronic kidney disease, unspecified CKD stage (ICD-10 - N18.9) 07/29/2024 Renal cyst (ICD-10 - N28.1) Pt has b/l peripelvic cysts and are stable based on report. She does not have any flank pain. No recent UTIs, pyelonephritis, or stones. Continue monitoring. Repeat ANIKA in 1 year. 07/29/2024 Urinary incontinence (ICD-10 - R32) Pt pleased without recurrent of OAB or UUI after stopping oxybutynin. Continue lifestyle modifications. If she has recurrence, will trial beta3 agonists since she had to dc due to side effects. 07/29/2024 Asymptomatic bacteriuria (ICD-10 - R82.71) Her UA is abnormal today but she is asymptomatic therefore will not culture and treat. Plan Of Treatment Pending Test Test Name Order Date Blood Urea Nitrogen (BUN) 10584 04/25/19 23 Creatinine (B) 74655 04/25/2022 Bladder Scan 07/29/2024 Future Test Test Name Order Date Basic Metabolic Panel [id number] 03/10/2023 Basic Metabolic Panel 07/01/2024 Renal w/bladder--[id number] 07/01/2024 Next Appt Details Provider Name:MELISSA Judge ESTEFANI NS, 08/04/2025 03:00:00 PM, [address] [place], [address], Insurance Providers Payer Name Payer Address Payer Phone Subscriber Number Group Number Insured Name Patient Relationship to Insured Coverage Start Date Coverage End Date [employer] Re[employer] t [address] [place], [place] [id number] Laurel Lobo Self - patient is the insured [facility] [address] [address] [place], [place] [id number] Laurel Lboo Self - patient is the insured Medical (General) History Surgical History Surgery Date(Month/Year) hysterectomy breast Hospitalization History Reason Date(Month/Year) childbirth surgeries
--- OUTSIDE RECORDS SUMMARY | 2024-10-21 17:26 | XMS_ITS | Patient Health Record ---
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 Name Role Phone Emily Cisse APN Primary Care Provider Deepti zepeda Charanjit Larry Unavailable [phone] Allergies Allergen (clinical drug ingredient) Drug/Non Drug Allergy documented on EMR Reaction Allergy Type Onset Date Status penicillin G Penicillin G Potassium nasal congestion Drug Allergy Active Iodine hives Drug Allergy Active Reason For Referral No Information Medications Medication SIG (Take, Route, Frequency, Duration) Notes Start Date End Date Status Lisinopril 5 MG Tablet 1 tablet Orally Once a day Active traMADol HCl 50 MG Tablet 1 tablet as needed Orally Once a day Active Ozempic (0.25 or 0.5 MG/DOSE) 2 MG/3ML Solution Pen-injector INJECT 0.25MG ONCE WEEKLY FOR 4 WEEKS, THEN INCREASE TO 0.5MG WEEKLY THEREAFTER Subcutaneous; Duration: 28 Days Active Polyethylene Glycol 3350 17 GM/SCOOP Powder DRINK 1 CAPFUL MIXED WITH 8 OUNCES OF FLUID DAILY FOR 30 DAYS Oral; Duration: 30 Days Active Ozempic (0.25 or 0.5 MG/DOSE) 2 MG/3ML Solution Pen-injector Subcutaneous; Duration: 28 Days Active Bactrim DS 800-160 MG Tablet 1 tablet Orally every 12 hrs; Duration: 10 day(s) 03/14/2011 Not-Taking Rosuvastatin Calcium 10 MG Tablet Oral; Duration: 90 Days Active diphenhydrAMINE HCl 50 MG Capsule 1 capsule one hour prior to contrast media Orally Once a day; Duration: 1 day take one capsule one hour prior to contrast media Not-Taking Alendronate Sodium 70 MG Tablet Oral; Duration: 84 Days Active methylPREDNISolone 32 MG Tablet as directed Orally every 12 hrs; Duration: 1 days Take one tablet 12 hours prior to contrast media and then one tablet 2 hours prior to contrast media Not-Taking Alendronate Sodium 70 MG Tablet 1 tablet 30 minutes before the first food, beverage or medicine of the day with plain water Orally Not-Taking oxyBUTYnin Not-Takin g Destin Mccabe Not- Taking Meloxicam 7.5 MG Tablet 1 tablet Orally Once a day Active Social History Tobacco Use: Social History Observation Description Date Details (start date - stop date) Never Smoker NA - NA Social History Tobacco Use: Social Info Question Answer Notes Tobacco Control (Standard) Tobacco use: Nonsmoker xTobacco Use/Smoking Are you a nonsmoker Additional Details Category Social Info Options Details zzMigrated Social History Migrated Social History Social History(Smoking(MU):):Sm oking Status: Non-smoker ; Problems Problem Type SNOMED Code ICD Code Onset Dates Problem Status W/U Status Risk Notes Problem Osteoarthritis of knee (477659791) Primary osteoarthritis of both knees (M17.0) Active confirmed Problem Renal cyst (265333135) Renal cyst (N28.1) Active confirmed Problem Chronic renal failure syndrome (67066239) Chronic kidney disease, unspecified CKD stage (N18.9) Active confirmed Problem Urinary incontinence (914411191) Urinary incontinence (R32) Active confirmed Plan Of Treatment Pending Test Test Name Order Date Blood Urea Nitrogen (BUN) 81812 04/25/19 Creatinine (B) 61613 04/25/2022 Insurance Providers Payer Name Payer Address Payer Phone Subscriber Number Group Number Insured Name Patient Relationship to Insured Coverage Start Date Coverage End Date [employer] [facility] t HMO (Self Pay) [address] [place] [address] [id number] Laurel Lobo Self - patient is the insured [place] Medicaid [address] [place] [address] [id number] Laurel Lobo Self - patient is the insured Medical (General) History Medical History History ICD Code measles mumps Chicken Pox whooping cough (pertussis) Pneumonia Arthritis bladder infections Back Trouble bronchitis Surgical History Surgery Date(Month/Year) tubal preg. breast hysterectomy Hospitalization History Reason Date(Month/Year) childbirth surgeries
[2024-10-21 17:27] VITALS: BP 100/73; PULSE 63; RESP 16; TEMP 36.8; O2SAT 100
--- OUTSIDE RECORDS SUMMARY | 2024-10-21 17:27 | XMS_ITS | Patient Health Record ---
[facility] Address [address] [facility] [address] [place] [address] Care Team Providers Care Stoper Name Role Phone Emily Cisse Unavailable [phone] Allergies Allergen (clinical drug ingredient) Drug/Non Drug Allergy documented on EMR Reaction Allergy Type Onset Date Status escitalopram Escitalopram anger Drug Allergy A ctive Results Component Value Reference Range Notes T3, TOTAL (859) Reviewed date:07/13/2024 08:14:38 AM Interpretation: Performing Lab:[facility] LANDAVERDE-Hhyuao37832 Daniel Tapia, QqgwvaCG[address] Alfonso Bourne MD Notes/Report: 0 0 0 0 0 T3, TOTAL TNP TEST NOT PERFORMED Due to a laboratory error, we are unable to perform this test. Specimen exceeded stability due to incorrect storage. TSH W/REFLEX TO FT4 (88527) Reviewed date:07/19/2024 08:48:27 AM Interpretation: Performing Lab:[facility] LANDAVERDE-[id number] Daniel Tapia, RptwscBJ[address] Alfonso Bourne MD Notes/Report: TSH W/REFLEX TO FT4 0.16 0.40-4.50 mIU/L T4, FREE 1.2 0.8-1.8 ng/dL HEMOGLOBIN A1c (496) Reviewed date:09/27/2024 08:01:01 AM Interpretation: Performing Lab:[facility] LANDAVERDE-[id number] Daniel Tapia, CwnhalHO[address] Alfonso Bourne MD Notes/Report: 0 0 0 0 HEMOGLOBIN A1c 5.9 <5.7 % For someone without known diabetes, a hemoglobin A1c value between 5.7% and 6.4% is consistent with prediabetes and should be confirmed with a follow-up test. For someone with known diabetes, a value <7% indicates that their diabetes is well controlled. A1c targets should be individualized based on duration of diabetes, age, comorbid conditions, and other considerations. This assay result is consistent with an increased risk of diabetes. Currently, no consensus exists regarding use of hemoglobin A1c for diagnosis of diabetes for children. CBC (INCLUDES DIFF/PLT) (639 9) Reviewed date:09/27/2024 08:01:01 AM Interpretation: Performing Lab:[facility] StudentFunder-[id number] Veena MottaKS[address] Alfonso Bourne MD Notes/Report: 0 0 0 0 WHITE BLOOD CELL COUNT 6.1 3.8-10.8 Thousand/ uL RED BLOOD CELL COUNT 3.80 3.80-5.10 Million/uL HEMOGLOBIN 10.5 11.7-15.5 g/dL HEMATOCRIT 35.6 35.0-45.0 % MCV 93.7 80.0-100.0 fL MCH 27.6 27.0-33.0 pg MCHC 29.5 32.0-36.0 g/dL For adults, a slight decrease in the calculated MCHC value (in the range of 30 to 32 g/dL) is most likely not clinically significant; however, it should be interpreted with caution in correlation with other red cell parameters and the patient's clinical condition. RDW 13.2 11.0-15.0 % PLATELET COUNT 227 140-400 Thousand/uL MPV 10.1 7.5-12.5 fL ABSOLUTE NEUTROPHILS [phone] cells/uL ABSOLUTE LYMPHOCYTES 1198 161-0585 cells/uL ABSOLUTE MONOCYTES 421 200-950 cells/uL ABSOLUTE EOSINOPHILS 342 15-500 cells/uL ABSOLUTE BASOPHILS 49 0-200 cells/uL NEUTROPHILS 56.7 LYMPHOCYTES 30.0 MONOCYTES 6.9 EOSINOPHILS 5.6 BASOPHILS 0.8 COMPREHENSIVE METABOLIC PANE L (55725) Reviewed date:09/27/2024 08:01:01 AM Interpretation: Performing Lab:[facility] StudentFunder-[id number] Daniel MottWbemdrWY[address] Alfonso Bourne MD Notes/Report: 0 0 0 0 GLUCOSE 106 65-99 mg/dL Fasting reference interval For someone without known diabetes, a glucose value between 100 and 125 mg/dL is consistent with prediabetes and should be confirmed with a follow-up test. UREA NITROGEN (BUN) 24 7-25 mg/dL CREATININE 0.90 0.60-1.00 mg/dL EGFR 68 > OR = 60 mL/min/1.73m2 BUN/CREATININE RATIO SEE NOTE: 6-22 (calc) Not Reported: BUN and Creatinine are within reference range. SODIUM 139 135-146 mmol/L POTASSIUM 4.4 3.5-5.3 mmol/L CHLORIDE 105 98-110 mmol/L CARBON DIOXIDE 27 20-32 mmol/L CALCIUM 9.0 8.6-10.4 mg/dL PROTEIN, TOTAL 6.2 6.1-8.1 g/dL ALBUMIN 3.6 3.6-5.1 g/dL GLOBULIN 2.6 1.9-3.7 g/dL (calc) ALBUMIN/GLOBULIN RATIO 1.4 1.0-2.5 (calc) BILIRUBIN, TOTAL 0.7 0.2-1.2 mg/dL ALKALINE PHOSPHATASE 115 37-153 U/L AST 21 10-35 U/L ALT 17 6-29 U/L ALBUMIN, RANDOM URINE W/CREA TININE (6517) Reviewed date:09/27/2024 08:01:01 AM Interpretation: Performing Lab:[facility] StudentFunder-[id number] Daniel Tapia, PmhbfwSA[address] Alfonso Bourne MD Notes/Report: 0 0 0 0 CREATININE, RANDOM URINE 54 20-275 mg/dL ALBUMIN, URINE 7.5 See Note: mg/dL Reference Range: Reference Range Not established ALBUMIN/CREATININE RATIO, RANDOM URINE 139 <30 mg/g creat The ADA defines abnormalities in albumin excretion as follows: Albuminuria Category Result (mg/g creatinine) Normal to Mildly increased <30 Moderately increased 30-299 Severely increased > OR = 300 The ADA recommends that at least two of three specimens collected within a 3-6 month period be abnormal before considering a patient to be within a diagnostic category. T3, TOTAL (859) Reviewed date:07/19/2024 05:20:45 PM Interpretation: Performing Lab:[facility] StudentFunder-Vlgvrh02731 Daniel Tapia, WweablOH[address] Alfonso Bourne MD Notes/Report: T3, TOTAL 140 76-181 ng/dL CULTURE, URINE, ROUTINE (395 ) Reviewed date:03/27/2024 03:57:21 PM Interpretation: Performing Lab:[facility]-[id number] Daniel MottIbstpoZD[address] Alfonso Bourne MD Notes/Report: 0 0 0 0 CULTURE, URINE, ROUTINE SEE NOTE CULTURE, URINE, ROUTINE Micro Number: [id number] Test Status: Final Specimen Source: Urine Specimen Quality: Adequate Result: Greater than 100,000 CFU/mL of Escherichia coli We received a preserved urine culture transport tube with either no order indicated or a source which is inappropriate for the test requested. A urine culture was performed. If this is not what you intended to order, please contact your local client server developer immediately so that we can adjust our billing appropriately. You may also inquire about alternative or additional testing. E.coli INT FRANCISCO AMOX/CLAVULANATE S 4 AMP/SULBACTAM S 4 CEFAZOLIN NR <=4 2 CEFEPIME S <=0.12 CEFTAZIDIME S <=1 CEFTRIAXONE S <=0.25 CIPROFLOXACIN S <=0.06 GENTAMICIN S <=1 IMIPENEM S <=0.25 LEVOFLOXACIN S <=0.12 MEROPENEM S <=0.25 NITROFURANTOIN S <=16 PIP/TAZOBACTAM S <=4 TRIMETHOPRIM/SULFA S <=20 S = Susceptible I = Intermediate R = Resistant NS = Not susceptible SDD = Susceptible Dose Dependent * = Not Tested NR = Not Reported NN = See Therapy Comments THERAPY COMMENTS Note 1: For infections other than uncomplicated UTI caused by E. coli, K. pneumoniae or P. mirabilis: Cefazolin is resistant if FRANCISCO > or = 8 mcg/mL. (Distinguishing susceptible versus intermediate for isolates with FRANCISCO < or = 4 mcg/mL requires additional testing.) Note 2: For uncomplicated UTI caused by E. coli, K. pneumoniae or P. mirabilis: Cefazolin is susceptible if FRANCISCO <32 mcg/mL and predicts susceptible to the oral agents cefaclor, cefdinir, cefpodoxime, cefprozil, cefuroxime, cephalexin and loracarbef. TSH W/REFLEX TO FT4 (82806) Reviewed date:07/01/2024 09:33:07 PM Interpretation: Performing Lab:Cefer[facility] LANDAVERDEa10101 Daniel MottFvozyeXP[address] Alfonso Bourne MD Notes/Report: 0 0 0 0 0 0 0 0 0 0 TSH W/REFLEX TO FT4 0.11 0.40-4.50 mIU/L T4, FREE 1.4 0.8-1.8 ng/dL HEMOGLOBIN A1c (496) Reviewed date:07/01/2024 09:33:07 PM Interpretation: Performing Lab:Ceferino LANDAVERDEa10101 Padmini Mott[address] Alfonso Bourne MD Notes/Report: 0 0 0 0 0 HEMOGLOBIN A1c 6.0 <5.7 % For someone without known diabetes, a hemoglobin A1c value between 5.7% and 6.4% is consistent with prediabetes and should be confirmed with a follow-up test. For someone with known diabetes, a value <7% indicates that their diabetes is well controlled. A1c targets should be individualized based on duration of diabetes, age, comorbid conditions, and other considerations. This assay result is consistent with an increased risk of diabetes. Currently, no consensus exists regarding use of hemoglobin A1c for diagnosis of diabetes for children. CBC (INCLUDES DIFF/PLT) (639 9) Reviewed date:07/01/2024 09:33:07 PM Interpretation: Performing Lab:Ceferino LANDAVERDEa10101 Veena MottaKS[address] Alfonso Bourne MD Notes/Report: 0 0 0 0 0 WHITE BLOOD CELL COUNT 6.2 3.8-10.8 Thousand/ uL RED BLOOD CELL COUNT 4.09 3.80-5.10 Million/uL HEMOGLOBIN 11.3 11.7-15.5 g/dL HEMATOCRIT 37.0 35.0-45.0 % MCV 90.5 80.0-100.0 fL MCH 27.6 27.0-33.0 pg MCHC 30.5 32.0-36.0 g/dL For adults, a slight decrease in the calculated MCHC value (in the range of 30 to 32 g/dL) is most likely not clinically significant; however, it should be interpreted with caution in correlation with other red cell parameters and the patient's clinical condition. RDW 13.4 11.0-15.0 % PLATELET COUNT 185 140-400 Thousand/uL MPV 10.7 7.5-12.5 fL ABSOLUTE NEUTROPHILS 3615 8062-9368 cells/uL ABSOLUTE LYMPHOCYTES 7523 078-7063 cells/uL ABSOLUTE MONOCYTES 298 200-950 cells/uL ABSOLUTE EOSINOPHILS 248 15-500 cells/uL ABSOLUTE BASOPHILS 68 0-200 cells/uL NEUTROPHILS 58.3 LYMPHOCYTES 31.8 MONOCYTES 4.8 EOSINOPHILS 4.0 BASOPHILS 1.1 COMPREHENSIVE METABOLIC PANE L (65044) Reviewed date:07/01/2024 09:33:07 PM Interpretation: Performing Lab:[facility]-Ukdgve02325 Daniel MottHfahdgVD[address] Alfonso Bourne MD Notes/Report: 0 0 0 0 0 GLUCOSE 99 65-99 mg/dL Fasting reference interval UREA NITROGEN (BUN) 24 7-25 mg/dL CREATININE 0.96 0.60-1.00 mg/dL EGFR 62 > OR = 60 mL/min/1.73m2 BUN/CREATININE RATIO SEE NOTE: 6-22 (calc) Not Reported: BUN and Creatinine are within reference range. SODIUM 139 135-146 mmol/L POTASSIUM 4.2 3.5-5.3 mmol/L CHLORIDE 107 98-110 mmol/L CARBON DIOXIDE 26 20-32 mmol/L CALCIUM 8.9 8.6-10.4 mg/dL PROTEIN, TOTAL 6.1 6.1-8.1 g/dL ALBUMIN 3.7 3.6-5.1 g/dL GLOBULIN 2.4 1.9-3.7 g/dL (calc) ALBUMIN/GLOBULIN RATIO 1.5 1.0-2.5 (calc) BILIRUBIN, TOTAL 0.5 0.2-1.2 mg/dL ALKALINE PHOSPHATASE 51 37-153 U/L AST 13 10-35 U/L ALT 10 6-29 U/L LIPID PANEL, STANDARD (6030) Reviewed date:07/01/2024 09:33:07 PM Interpretation: Performing Lab:[facility] Hansel-Jqsoba20236 Daniel MottTjyrjyZD[address] Alfonso Bourne MD Notes/Report: 0 0 0 0 0 CHOLESTEROL, TOTAL 150 <200 mg/dL HDL CHOLESTEROL 46 > OR = 50 mg/dL TRIGLYCERIDES 95 <150 mg/dL LDL-CHOLESTEROL 85 Reference range: <100 Desirable range <100 mg/dL for primary prevention; <70 mg/dL for patients with CHD or diabetic patients with > or = 2 CHD risk factors. LDL-C is now calculated using the Dakota-Dacosta calculation, which is a validated novel method providing better accuracy than the Friedewald equation in the estimation of LDL-C. Dakota SS et al. DENEEN. 2013;310(77): 5801-8291 (http://education.Stardoll.fivesquids.co.uk/faq/BUH681) CHOL/HDLC RATIO 3.3 <5.0 (calc) NON HDL CHOLESTEROL 104 <130 mg/dL (calc) For patients with diabetes plus 1 major ASCVD risk factor, treating to a non-HDL-C goal of <100 mg/dL (LDL-C of <70 mg/dL) is considered a therapeutic option. HEMOGLOBIN A1c (496) Reviewed date:03/26/2024 01:24:05 PM Interpretation: Performing Lab:[facility]A StudentFunder-Znbwzq79737 Daniel Tapia, KojhdhJK[address] Alfonso Bourne MD Notes/Report: 0 0 0 0 HEMOGLOBIN A1c 6.2 <5.7 % of total Hgb For someone without known diabetes, a hemoglobin A1c value between 5.7% and 6.4% is consistent with prediabetes and should be confirmed with a follow-up test. For someone with known diabetes, a value <7% indicates that their diabetes is well controlled. A1c targets should be individualized based on duration of diabetes, age, comorbid conditions, and other considerations. This assay result is consistent with an increased risk of diabetes. Currently, no consensus exists regarding use of hemoglobin A1c for diagnosis of diabetes for children. COMPREHENSIVE METABOLIC PANE L (45228) Reviewed date:03/26/2024 01:24:05 PM Interpretation: Performing Lab:[facility] StudentFunder-[id number] Daniel Tapia, YfznpnGW[address] Alfonso Bourne MD Notes/Report: 0 0 0 0 GLUCOSE 97 65-99 mg/dL Fasting reference interval UREA NITROGEN (BUN) 21 7-25 mg/dL CREATININE 0.79 0.60-1.00 mg/dL EGFR 79 > OR = 60 mL/min/1.73m2 BUN/CREATININE RATIO SEE NOTE: 6-22 (calc) Not Reported: BUN and Creatinine are within reference range. SODIUM 139 135-146 mmol/L POTASSIUM 4.4 3.5-5.3 mmol/L CHLORIDE 106 98-110 mmol/L CARBON DIOXIDE 26 20-32 mmol/L CALCIUM 9.4 8.6-10.4 mg/dL PROTEIN, TOTAL 6.4 6.1-8.1 g/dL ALBUMIN 3.8 3.6-5.1 g/dL GLOBULIN 2.6 1.9-3.7 g/dL (calc) ALBUMIN/GLOBULIN RATIO 1.5 1.0-2.5 (calc) BILIRUBIN, TOTAL 0.5 0.2-1.2 mg/dL ALKALINE PHOSPHATASE 56 37-153 U/L AST 12 10-35 U/L ALT 10 6-29 U/L LIPID PANEL, STANDARD (7600) Reviewed date:03/26/2024 01:24:05 PM Interpretation: Performing Lab:SAIMA, StudentFunder-[id number] Daniel [facility], GiuzkbZJ[address] Alfonso Bourne MD Notes/Report: 0 0 0 0 CHOLESTEROL, TOTAL 160 <200 mg/dL HDL CHOLESTEROL 45 > OR = 50 mg/dL TRIGLYCERIDES 99 <150 mg/dL LDL-CHOLESTEROL 96 Reference range: <100 Desirable range <100 mg/dL for primary prevention; <70 mg/dL for patients with CHD or diabetic patients with > or = 2 CHD risk factors. LDL-C is now calculated using the Dakota-Dacosta calculation, which is a validated novel method providing better accuracy than the Friedewald equation in the estimation of LDL-C. Dakota HERNANDEZ et al. DENEEN. 2013;310(19): 0881-8799 (http://education.Stardoll.com/faq/FNY990) CHOL/HDLC RATIO 3.6 <5.0 (calc) NON HDL CHOLESTEROL 115 <130 mg/dL (calc) For patients with diabetes plus 1 major ASCVD risk factor, treating to a non-HDL-C goal of <100 mg/dL (LDL-C of <70 mg/dL) is considered a therapeutic option. ALBUMIN, RANDOM URINE W/CREA TININE (6517) Reviewed date:03/26/2024 01:24:05 PM Interpretation: Performing Lab:Ceferino LANDAVERDEa10101 Padmini Mott[address] Alfonso Bourne MD Notes/Report: 0 0 0 0 CREATININE, RANDOM URINE 76 20-275 mg/dL ALBUMIN, URINE 8.6 See Note: mg/dL Reference Range: Reference Range Not established ALBUMIN/CREATININE RATIO, RANDOM URINE 113 <30 mg/g creat Moderately increased 30-299 Severely increased > OR = 300 The ADA recommends that at least two of three specimens collected within a 3-6 month period be abnormal before considering a patient to be within a diagnostic category. The ADA defines abnormalities in albumin excretion as follows: Albuminuria Category Result (mg/g creatinine) Normal to Mildly increased <30 HEMOGLOBIN A1c (496) Reviewed date:12/31/2023 03:51:56 PM Interpretation: Performing Lab:Ceferino LANDAVERDEa101Padmini Fenton[address] Alfonso Bourne MD Notes/Report: 0 0 0 HEMOGLOBIN A1c 6.0 <5.7 % of total Hgb For someone without known diabetes, a hemoglobin A1c value between 5.7% and 6.4% is consistent with prediabetes and should be confirmed with a follow-up test. For someone with known diabetes, a value <7% indicates that their diabetes is well controlled. A1c targets should be individualized based on duration of diabetes, age, comorbid conditions, and other considerations. This assay result is consistent with an increased risk of diabetes. Currently, no consensus exists regarding use of hemoglobin A1c for diagnosis of diabetes for children. CBC (INCLUDES DIFF/PLT) (639 9) Reviewed date:12/31/2023 03:51:56 PM Interpretation: Performing Lab:Ceferino LANDAVERDEexa10101 Veena MottaKS[address] Alfonso Bourne MD Notes/Report: 0 0 0 WHITE BLOOD CELL COUNT 6.7 3.8-10.8 Thousand/ uL RED BLOOD CELL COUNT 3.88 3.80-5.10 Million/uL HEMOGLOBIN 11.2 11.7-15.5 g/dL HEMATOCRIT 35.0 35.0-45.0 % MCV 90.2 80.0-100.0 fL MCH 28.9 27.0-33.0 pg MCHC 32.0 32.0-36.0 g/dL For adults, a slight decrease in the calculated MCHC value (in the range of 30 to 32 g/dL) is most likely not clinically significant; however, it should be interpreted with caution in correlation with other red cell parameters and the patient's clinical condition. RDW 12.8 11.0-15.0 % PLATELET COUNT 224 140-400 Thousand/uL MPV 11.3 7.5-12.5 fL ABSOLUTE NEUTROPHILS 3665 7303-3694 cells/uL ABSOLUTE LYMPHOCYTES 2271 850-3900 cells/uL ABSOLUTE MONOCYTES 308 200-950 cells/uL ABSOLUTE EOSINOPHILS 409 15-500 cells/uL ABSOLUTE BASOPHILS 47 0-200 cells/uL NEUTROPHILS 54.7 LYMPHOCYTES 33.9 MONOCYTES 4.6 EOSINOPHILS 6.1 BASOPHILS 0.7 COMPREHENSIVE METABOLIC PANE L (92771) Reviewed date:12/31/2023 03:51:56 PM Interpretation: Performing Lab:SAIMA, StudentFunder-Zibqty23074 Daniel Tapia, QvtprqQZ[address] Alfonso Bourne MD Notes/Report: 0 0 0 GLUCOSE 109 65-99 mg/dL Fasting reference interval For someone without known diabetes, a glucose value between 100 and 125 mg/dL is consistent with prediabetes and should be confirmed with a follow-up test. UREA NITROGEN (BUN) 21 7-25 mg/dL CREATININE 0.80 0.60-1.00 mg/dL EGFR 78 > OR = 60 mL/min/1.73m2 BUN/CREATININE RATIO SEE NOTE: 6-22 (calc) Not Reported: BUN and Creatinine are within reference range. SODIUM 142 135-146 mmol/L POTASSIUM 4.5 3.5-5.3 mmol/L CHLORIDE 108 98-110 mmol/L CARBON DIOXIDE 26 20-32 mmol/L CALCIUM 9.0 8.6-10.4 mg/dL PROTEIN, TOTAL 6.1 6.1-8.1 g/dL ALBUMIN 3.5 3.6-5.1 g/dL GLOBULIN 2.6 1.9-3.7 g/dL (calc) ALBUMIN/GLOBULIN RATIO 1.3 1.0-2.5 (calc) BILIRUBIN, TOTAL 0.6 0.2-1.2 mg/dL ALKALINE PHOSPHATASE 67 37-153 U/L AST 12 10-35 U/L ALT 11 6-29 U/L Reason For Referral Reason [facility] endocrinology. Diagnosis 1 Low TSH level (R79.8 9) Referral Organization [facility] Application Experts Referring Provider First Name Emily Referring Provider Last Name Referring Provider [facility] jonathon Referred Provider Endocrinology, [facility], Dr Carrington Houser Referred Provider Specialty Endocrinolog y General Notes Lisa Carrillo 2024 08:57:13 AM >Insurance card, last office visit note and past year of labs attached. Referral faxed., Lisa Carrillo 08/02/2024 01:38:47 PM >Attempt TC to [facility] Endocrinology. Left message to return my call., Lisa Carrillo 08/12/2024 01:13:56 PM >TC to Mavis brito/ [facility] Endocrinology. Confirmed appt was 07/30/24 at 11 am. Referral Priority Routine Referral Appointment Date 07/30/2024 Reason [facility] cardiology Diagnosis 1 Paroxysmal atrial fi brillation (I48.0) [facility] Application Experts Referring Provider First Name Emily Referring Provider Last Name Referring Provider [facility] Lisa [facility]illo 2024 08:05:41 AM >Insurance card attached. Referral faxed. Referral Priority Routine Medications Medication SIG (Take, Route, Frequency, Duration) Notes Start Date End Date Status Flonase 02/11/2024 Active Rosuvastatin Calcium 10 MG TAKE 1 TABLET BY MOUTH EVERY DAY FOR 90 DAYS Active Polyethylene Glycol 3350 17 GM/SCOOP TAKE 1 SCOOP (17 GRAMS) BY MOUTH DAILY. DISSOLVE IN 8 OUNCES OF FLUID AND DRINK ENTIRE LIQUID Oral; Duration: 30 Days 09/03/2024 Active Ventolin HFA 108 (90 Base) MCG/ACT 2 puff as needed for cough or congestion Inhalation every 4 hrs; Duration: 14 07/25/2022 Active oxyCODONE HCl 5 MG 1 tablet as needed Oral 4 times a day; Duration: 7 days 09/03/2024 Active Farxiga 5 MG 1 tablet Orally Once a day; Duration: 90 days 06/30/2024 06/25/2025 Active Bisacodyl 5 MG 1 tablet as needed Orally Once a day 09/03/2024 Active Escitalopram Oxalate 10 MG 1 tablet Orally Once a day; Duration: 90 days 12/17/2023 Not-Taking Lisinopril 5 MG TAKE 1 TABLET BY MOUTH EVERY DAY FOR 90 DAYS Active [place] 450 MG as directed Orally Active Alendronate Sodium 70 MG TAKE 1 TAB BY MOUTH ONCE WEEKLY W/ WATER, 30MINS BEFORE FIRST FOOD, BEVERAGE, OR MEDICINE OF THE DAY 84; Duration: 84 Active traMADol HCl 50 MG 1 tab Oral Once a day; Duration: 90 days As needed for knee pain DX code : M17.0 07/19/2024 Active methIMAzole 5 MG 1 tablet Orally Once a day Active Tylenol 8 Hour Arthritis Pain 650 MG 2 tablets as needed Orally every 8 hrs Active Ondansetron HCl 4 MG 1 tablet as needed for nausea/vomiting Orally three times daily; Duration: 3 days 07/09/2023 Active Eliquis 5 MG 1 tablet Oral twice a day; Duration: 90 days 09/14/2024 Active Ipratropium-Albuterol 0.5-2.5 (3) MG/3ML 3 mL as needed Inhalation every 6 hrs 07/09/2023 Active Famotidine 20 MG Oral; Duration: 30 Days 09/03/2024 Active Nebulizer/Tubing/Mout hpiece - as directed 07/09/2023 Active Social History Tobacco Use: Social History Observation Description Date Details (start date - stop date) Never Smoker NA - NA Sex Assigned At : Social History Observation Description Sex Assigned At Female Household Question Answer Notes Marital status: Number of adults in household: 3 Tobacco Use/Smoking Question Answer Notes Tobacco use: nonsmoker Section Notes: Non smoker, but grew up in s moking home Problems Problem Type SNOMED Code ICD Code Onset Dates Problem Status W/U Status Risk Notes Problem Diabetic renal disease (649228328) Type 2 diabetes mellitus with diabetic chronic kidney disease (E11.22) Active confirmed Problem Morbid obesity (disorder) (989033750) Morbid (severe) obesity due to excess calories (E66.01) Active confirmed Problem Chronic pain (60876971) Other chronic pain (G89.29) Active confirmed Problem Paroxysmal atrial fibrillation (606246146) Paroxysmal atrial fibrillation (I48.0) Active confirmed Problem Cholelithiasis without obstruction (18575125) Calculus of gallbladder without cholecystitis without obstruction (K80.20) Active confirmed Problem Chronic kidney disease stage 2 (244464912) Chronic kidney disease, stage 2 (mild) (N18.2) Active confirmed Problem Chronic kidney disease (850302421) Chronic kidney disease, unspecified (N18.9) Active confirmed Problem Age-related osteoporosis (375105754) Osteoporosis without current pathological fracture, unspecified osteoporosis type (M81.0) Active confirmed Problem Hyperlipidaemia (84398182) Hyperlipidemia, unspecified hyperlipidemia type (E78.5) Active confirmed Problem Hyperglycemia due to type 2 diabetes mellitus (911788025668867) Type 2 diabetes mellitus with hyperglycemia, without long-term current use of insulin (E11.65) Active confirmed Problem COPD - Chronic obstructive pulmonary disease (94541947) Chronic obstructive pulmonary disease, unspecified COPD type (J44.9) Active confirmed Problem Constipation (14848869) Constipation, unspecified constipation type (K59.00) Active confirmed Problem Polyneuropathy due to type 2 diabetes mellitus (935105060) Diabetic polyneuropathy associated with type 2 diabetes mellitus (E11.42) Active confirmed Problem History of diabetes mellitus (434295613) History of diabetes mellitus (Z86.39) Active confirmed Problem History of exposure to second hand smoke (situation) (377250620) History of second hand smoke exposure (Z77.22) Active confirmed Problem Morbid obesity (819368309) Obesity, morbid, BMI 40.0-49.9 (E66.01) Active confirmed Problem Osteoarthritis of knee (789733740) Osteoarthritis of both knees, unspecified osteoarthritis type (M17.0) Active confirmed Problem Chronic kidney disease stage 2 (869246483) Stage 2 chronic kidney disease (N18.2) Active confirmed Problem Obese class II (103973090340818) BMI 37.0-37.9, adult (Z68.37) Active confirmed Problem Microalbuminuria (499175012) Microalbuminuria (R80.9) Active confirmed Problem Subclinical hyperthyroidism (134606256) Subclinical hyperthyroidism (E05.90) Active confirmed Problem Difficulty walking (365228885) Difficulty walking (R26.2) Active confirmed Problem History of thromboembolism of vein (802573759) History of DVT of lower extremity (Z86.718) Active confirmed Vital Signs Heart Rate 64 /min 09/23/202406/10-right knee pain Temperature 97.3 degrees Fahrenheit 09/23/202406/10 -right knee pain Height-cm 161.29 cm 09/23/202406/10-right knee pain Oximetry 98 % 09/23/202406/10-right knee pain Blood pressure diastolic 52 mm Hg 09/23/202406/01 0-right knee pain Weight-kg 95.44 kg 09/23/202406/10-right knee pain Height 63.5 in 09/23/202406/10-right knee pain Blood pressure systolic 112 mm Hg 09/23/202406/10 -right knee pain Weight 210.4 lbs 09/23/202406/10-right knee pain BMI 36.68 kg/m2 09/23/202406/10-right knee pain Encounters Encounter Location Date [facility] [address] [place] [id number] 08/23/2024 Emily Cisse Type 2 diabetes boy [...] of right lower extremity, unspecified chronicity I82.491 [facility] [address] [place] [phone] 12/17/2023 Emily Cisse Type 2 diabetes boy itus with diabetic chronic kidney disease E11.22 ; Chronic kidney disease, stage 2 (mild) N18.2 ; Osteoarthritis of both knees, unspecified osteoarthritis type M17.0 ; Screening mammogram for breast cancer Z12.31 ; Osteoporosis without current pathological fracture, unspecified osteoporosis type M81.0 ; Deep vein thrombosis (DVT) of right lower extremity, unspecified chronicity, unspecified vein I82.401 ; Mild depression F32.A ; Type 2 diabetes mellitus with hyperglycemia, without long-term current use of insulin E11.65 ; Elevated hemoglobin A1c R73.09 ; Chronic kidney disease, unspecified N18.9 and Hyperlipidemia, unspecified hyperlipidemia type E78.5 [facility] [address] [address] 03/24/2024 Emily Cisse Type 2 diabetes boy itus with diabetic chronic kidney disease E11.22 ; Chronic kidney disease, stage 2 (mild) N18.2 ; Hyperlipidemia, unspecified hyperlipidemia type E78.5 ; BMI 37.0-37.9, adult Z68.37 ; Chronic obstructive pulmonary disease, unspecified COPD type J44.9 ; Elevated hemoglobin A1c R73.09 ; Type 2 diabetes mellitus with hyperglycemia, without long-term current use of insulin E11.65 ; Deep vein thrombosis (DVT) of other vein of right lower extremity, unspecified chronicity I82.491 ; Obesity, morbid, BMI 40.0-49.9 E66.01 and Osteoarthritis of both knees, unspecified osteoarthritis type M17.0 [facility] [address] [address] 06/30/2024 Emily Cisse Hyperlipidemia, unspecified hyperlipidemia type E78.5 ; Type 2 diabetes mellitus with hyperglycemia, without long-term current use of insulin E11.65 ; Elevated hemoglobin A1c R73.09 ; Type 2 diabetes mellitus with diabetic chronic kidney disease E11.22 and Stage 2 chronic kidney disease N18.2 [facility] [address] [address] 09/23/2024 Emily Cisse Paroxysmal atrial fibrillation I48.0 ; History of DVT of lower extremity Z86.718 ; Type 2 diabetes mellitus with hyperglycemia, without long-term current use of insulin E11.65 ; Elevated hemoglobin A1c R73.09 ; Thyroid dysfunction E07.9 and Subclinical hyperthyroidism E05.90 [facility] [address] [address] 10/07/2024 [facility] [address] [address] 12/01/2023 [facility] [address] [address] 12/03/2023 [facility], [facility] [address] [place] [phone] 12/31/2023 [facility], [facility] [address] [place] [phone] 03/27/2024 [facility], [facility] [address] [place] [phone] 04/01/2024 [facility] Nausea and vomiting, unspecified vomiting type R11.2 [facility] [address] [place] [phone] 04/07/2024 [facility] [address] [place] [phone] 04/09/2024 [facility], [facility] [address] [place] [phone] 07/01/2024 [facility], [facility] [address] [place] [phone] 07/13/2024 [facility] Low TSH level R79.89 [facility], [facility] [address] [place] [phone] 07/19/2024 [facility] Low TSH level R79.89 [facility], [facility] [address] [place] [phone] 08/25/2024 [facility], [facility] [address] [place] [phone] 09/14/2024 [facility], [facility] [address] [place] [phone] 09/27/2024 [facility] Assessments Encounter Date Diagnosis (ICD Code) Assessment Notes Treatment Notes Treatment Clinical Notes Section Notes 12/17/2023 Type 2 diabetes mellitus with diabetic chronic kidney disease (ICD-10 - E11.22) 12/17/2023 Chronic kidney disease, stage 2 (mild) (ICD-10 - N18.2) nephrology 01/07/24 03/24/2024 Type 2 diabetes mellitus with diabetic chronic kidney disease (ICD-10 - E11.22) 03/24/2024 Chronic kidney disease, stage 2 (mild) (ICD-10 - N18.2) Follow-up refilled nephrology January 2025 06/30/2024 Hyperlipidemia, unspecified hyperlipidemia type (ICD-10 - E78.5) 06/30/2024 Type 2 diabetes mellitus with hyperglycemia, without long-term current use of insulin (ICD-10 - E11.65) Will consider increasing her Ozempic dose, if her A1c is up. The decreased dose is helping with her constipation so 07/13/2024 Low TSH level (ICD-10 - R79.89) h 07/19/2024 Low TSH level (ICD-10 - R79.89) 08/23/2024 Hyperlipidemia, unspecified hyperlipidemia type (ICD-10 - E78.5) 08/23/2024 Type 2 diabetes mellitus with hyperglycemia, without long-term current use of insulin (ICD-10 - E11.65) 04/01/2024 Nausea and vomiting, unspecified vomiting type (ICD-10 - R11.2) 09/23/2024 Paroxysmal atrial fibrillation (ICD-10 - I48.0) 09/23/2024 History of DVT of lower extremity (ICD-10 - Z86.718) 09/23/2024 Type 2 diabetes mellitus with hyperglycemia, without long-term current use of insulin (ICD-10 - E11.65) 08/23/2024 Osteoarthritis of both knees, unspecified osteoarthritis type (ICD-10 - M17.0) 06/30/2024 Elevated hemoglobin A1c (ICD-10 - R73.09) 03/24/2024 Hyperlipidemia, unspecified hyperlipidemia type (ICD-10 - E78.5) 12/17/2023 Osteoarthritis of both knees, unspecified osteoarthritis type (ICD-10 - M17.0) 12/17/2023 Screening mammogram for breast cancer (ICD-10 - Z12.31) scheduled for 01/26/24 03/24/2024 BMI 37.0-37.9, adult (ICD-10 - Z68.37) Continue diet and weight loss, Learning About Healthy Weight material was printed 08/23/2024 Type 2 diabetes mellitus with diabetic chronic kidney disease (ICD-10 - E11.22) 09/23/2024 Elevated hemoglobin A1c (ICD-10 - R73.09) Continue meds. Most recent A1c was 5.9 And, she is intentionally losing weight 06/30/2024 Type 2 diabetes mellitus with diabetic chronic kidney disease (ICD-10 - E11.22) Keep nephrology follow-up 09/23/2024 Thyroid dysfunction (ICD-10 - E07.9) 08/23/2024 Chronic kidney disease, stage 2 (mild) (ICD-10 - N18.2) 06/30/2024 Stage 2 chronic kidney disease (ICD-10 - N18.2) 12/17/2023 Osteoporosis without current pathological fracture, unspecified osteoporosis type (ICD-10 - M81.0) DEXA 01/26/24 03/24/2024 Chronic obstructive pulmonary disease, unspecified COPD type (ICD-10 - J44.9) mild. No Rx at this time 12/17/2023 Deep vein thrombosis (DVT) of right lower extremity, unspecified chronicity, unspecified vein (ICD-10 - I82.401) 03/24/2024 Elevated hemoglobin A1c (ICD-10 - R73.09) 08/23/2024 Difficulty walking (ICD-10 - R26.2) 09/23/2024 Subclinical hyperthyroidism (ICD-10 - E05.90) Keep endocrinology follow-up for 10/01/2024 08/23/2024 Other reduced mobility (ICD-10 - Z74.09) 03/24/2024 Type 2 diabetes mellitus with hyperglycemia, without long-term current use of insulin (ICD-10 - E11.65) 12/17/2023 Mild depression (ICD-10 - F32.A) 03/24/2024 Deep vein thrombosis (DVT) of other vein of right lower extremity, unspecified chronicity (ICD-10 - I82.491) 12/03/2023. Unprovoked, Learning About Deep Vein Thrombosis material was printed 08/23/2024 Nausea (ICD-10 - R11.0) 08/23/2024 History of DVT (deep vein thrombosis) (ICD-10 - Z86.718) she will STOP her eliquis today..has been on for almost 9mos. she will need to resume her eliquis for at least 21days after surgery per my consult with dr rachel. she will discuss with her surgeon as well. 12/17/2023 Type 2 diabetes mellitus with hyperglycemia, without long-term current use of insulin (ICD-10 - E11.65) 03/24/2024 Obesity, morbid, BMI 40.0-49.9 (ICD-10 - E66.01) 12/17/2023 Elevated hemoglobin A1c (ICD-10 - R73.09) 03/24/2024 Osteoarthritis of both knees, unspecified osteoarthritis type (ICD-10 - M17.0) 08/23/2024 Deep vein thrombosis (DVT) of other vein of right lower extremity, unspecified chronicity (ICD-10 - I82.491) 12/17/2023 Chronic kidney disease, unspecified (ICD-10 - N18.9) 12/17/2023 Hyperlipidemia, unspecified hyperlipidemia type (ICD-10 - E78.5) 03/24/2024 Other Care Coordinati on Assessment completed, signed and dated by provider during visit. Plan Of Treatment Pending Test Test Name Order Date CBC (INCLUDES DIFF/PLT) WITH SMEAR REVIE W () 12/13/2022 Next Appt Details Provider Name:Emily Cisse , 12/23/2024 10:00:00 AM, [address] [place] [address], [phone], Provider Name:Emily Cisse , 12/23/2024 10:00:00 AM, [address], [facility], [place], [address], Insurance Providers Payer Name Payer Address Payer Phone Subscriber Number Group Number Insured Name Patient Relationship to Insured Coverage Start Date Coverage End Date [employer] [address] [place], [place] [id number] Laurel Lobo Self - patient is the insured Medicaid [address] [place] [address] [id number] Laurel Lobo Self - patient is the insured Medical (General) History Medical History History ICD Code hx of dm cervical cancer colonoscopy 2018. dr martinez, nxt in 10y r mammo 01/25normal 12/2021 20.3% 10 yr ascvd risk. lipids s tarted. DEXA sched 01/2025 [facility] Surgical History Surgery Date(Month/Year) lumpectomy 2020 hysterectomy. 1 ovary remains Hospitalization History Reason Date(Month/Year) None in past 30 days
--- OUTSIDE RECORDS SUMMARY | 2024-10-21 17:27 | XMS_ITS | Clinical Summary ---
Author Organization [facility], [facility] Address [address] [place] [address] Phone Care Team Providers Care Net Programmer Name Role Phone Emily Ghanshyam MARCH Primary Care Provider [phone] Allergies Active Allergy Reactions Criticality Noted Date Comments Iodinated Contrast Media Itching 10/05/2019 Penicillins 10/05/2019 Medications * This document contains information received from the source organization and may not represent a complete record from that organization. albuterol HFA (PROVENTIL HFA;VENTOLIN HFA) 108 (90 Base) MCG/ACT inhaler INHALE 2 PUFFS EVERY 4 HOURS NEEDED FOR WHEEZE OR FOR SHORTNESS OF BREATH 4 Active ipratropium-al buterol (DUO-NEB) 0.5-2.5 mg/3 mL nebulizer solution INHALE 1 VIAL VIA NEBULIZER EVERY 6 HOURS NEEDED 4 Active ondansetron (ZOFRAN) 4 MG tablet TAKE 1 TABLET BY MOUTH THREE TIMES A DAY NEEDED FOR NAUSEA/VOMITING 4 Active Ozempic, 0.25 or 0.5 MG/DOSE, 2 MG/3ML solution pen-injector INJECT 0.50MG SUBCUTANEOUSLY ONCE WEEKLY 4 Active traMADol (ULTRAM) 50 MG tablet Take 50 mg by mouth every 6 (six) hours if needed Active lisinopril 5 MG tablet Take 5 mg by mouth in the morning. 0 Active alendronate (FOSAMAX) 70 MG tablet 3 Active rosuvastatin (CRESTOR) 10 MG tablet 3 Active Eliquis 5 MG tablet Take 5 mg by mouth in the morning and 5 mg in the evening. TAKE 1 TABLET BY MOUTH TWICE A DAY FOR 90 DAYS. Active acetaminophen (TYLENOL) 500 MG tablet Take 1,000 mg by mouth every 8 (eight) hours if needed for mild pain or moderate pain Active UNABLE TO FIND Take 270 mg by mouth in the morning. Active Oxymetazoline HCl (AFRIN 12 HOUR NA) Administer 2 sprays into affected nostril(s) 1 (one) time each day in the evening Active Active Problems No known active problems Family History Medical History Relation Comments Diabetes Brother Diabetes Father Heart disease Father Hypertension Father Diabetes Mother Diabetes Sister Relation Status Comments Brother Father Mother Sister Social History Tobacco Use Types Packs/Day Years Used Date Smoking Tobacco: Never Passive Smoke Exposure: Never Smokeless Tobacco: Never Alcohol Use Standard Drinks/Week Comments Not Currently 0 (1 standard drink = 0.6 oz pur e alcohol) Socially Comments No Sex and Gender Information Value Date Recorded Sex Assigned at Not on file Legal Sex Female 9:59 AM EDT Gender Identity Not on file Sexual Orientation Not on file Last Filed Vital Signs Vital Sign Reading Time Taken Comments Blood Pressure 120/50 01/07/2024 11:33 AM UROLOGY PHYSICIAN ASSISTANT Pulse 59 01/07/2024 11:33 AM UROLOGY PHYSICIAN ASSISTANT Temperature - - Respiratory Rate - - Oxygen Saturation 96% 01/07/2024 11:33 AM UROLOGY PHYSICIAN ASSISTANT Inhaled Oxygen Concentration - - Weight 98 kg (216 lb) 01/07/2024 11:33 AM UROLOGY PHYSICIAN ASSISTANT Height 167.6 cm (5' 6 ) 01/07/2024 11:33 AM UROLOGY PHYSICIAN ASSISTANT Body Mass Index 34.86 01/07/2024 11:33 AM UROLOGY PHYSICIAN ASSISTANT Plan of Treatment Upcoming Encounters Date Type Department Care Team (Late st Contact Info) Description 01/03/2025 10:00 AM UROLOGY PHYSICIAN ASSISTANT Office Visit [facility] [address] [place] [address] Joyce Hu NP [facility] [phone] Health Maintenance Due Date Last Done Comments Breast Cancer Screening 1950 Pneumococcal Vaccine: 50+ Years (1 of 2 - PCV) 1969 Colorectal Cancer Screening: Annual FOBT 10/05/1999 Colorectal Cancer Screening: Colonoscopy 10/05/1999 Colorectal Cancer Screening: Sigmoidoscopy 10/05/1999 Diabetes: Ophthalmology Exam 07/22/2023 Diabetes: Pedal Pulse Checked 07/22/2023 Diabetes: Sensory Foot Exam 07/22/2023 Diabetes: Visual Foot Exam 07/22/2023 Influenza Vaccine (#1) 2024 Diabetes: Hemoglobin A1C 11/26/2024 025, 03/25/2024, 10/09/2023 Hepatitis B Vaccine Aged Out No longe r eligible based on patient's age to complete this topic Procedures Procedure Name Priority Date/Time Associated Diagnosis Comments HEMOGLOBIN A1C (EXTERNAL RESULT ENTRY) Routine 03/25/2024 from Last 3 Months or Most Recently Relevant to Health Maintenance Results * Hemoglobin A1C (03/25/2024) Hemoglobin A1C 6.2 Blood specimen (specimen) Venous blood / Unknown 03/25/2024 Narrative Carmen Wallace MA - 03/25/2024 [facility] External Provider LAB BLOOD ORDERABLES Final Result from Last 3 Months or Most Recently Relevant to Health Maintenance Insurance [address] [place] [address] Medicaid [place] ([id number]) [employer] [facility] Adv HMO ([id number]) Care Teams Net Programmer Relationship Specialty Start Date End Date Emily Cisse APN [address] [place] [address] PCP - General Nurse Practitioner 07/22/23
--- NOTE | 2024-10-21 17:56 | XRR_ITS ---
PROCEDURE INFORMATION: Exam: XR Right Ankle Exam date and time: 10/21/2024 6:08 PM Age: 74 years old Clinical indication: Pain; Ankle; Right; Additional info: Ankle pain after fall TECHNIQUE: Imaging protocol: Radiologic exam of the right ankle. Views: 3 or more views. COMPARISON: CR XR knees AP WB w BI lmt ORTH 12/20/2021 2:56 PM FINDINGS: Bones/joints: No acute fracture or dislocation. Calcaneal bone spurs are noted. Soft tissues: Moderate soft tissue swelling surrounds the ankle. Small vascular calcifications are present in the soft tissues. XR/XR ankle RT min 3V* [id number] IMPRESSION: 1. No acute fracture or dislocation identified. 2. Soft tissue swelling.
--- NOTE | 2024-10-21 17:56 | CTR_ITS ---
PROCEDURE INFORMATION: Exam: CT Cervical Spine Without Contrast Exam date and time: 10/21/2024 6:59 PM Age: 74 years old Clinical indication: Injury or trauma; Fall; Blunt trauma; Additional info: Fall/hit head TECHNIQUE: Imaging protocol: Computed tomography of the cervical spine without contrast. Radiation optimization: All CT scans at this facility use at least one of these dose optimization techniques: automated exposure control; mA and/or kV adjustment per patient size (includes targeted exams where dose is matched to clinical indication); or iterative reconstruction. COMPARISON: CT cervical spin wo con* [id number] 04/13/2018 14:33 RADIATION DOSE METRICS: Total DLP (mGy-cm): 208.1 FINDINGS: Bones/joints: Detailed axial source and reconstructed image sets demonstrate no distinct linear areas of decreased density as might indicate presence of the fracture.. Sagittal images demonstrate trace components of anterolisthesis at C2/C3 and C3/C4. This is most consistent with degenerative ligamentous laxity and in keeping with degenerative disc changes noted particularly at C4-C5 and to a lesser degree at C5-C6 and C6-C7 which consist of disc space narrowing and circumferential spurring. C2-C3: Posterior disc convexity seen with relative patency of the canal and neural foramina. C3-C4: Central posterior disc bulging is noted which is mild with relative patency of the canal and neural foramina. C4-C5: Moderate to markedly prominent broad-based posterior spur/disc degenerative changes seen moderately narrowing the canal with moderate right mild left degenerative foraminal narrowing observed as well. C5-C6: Fsmc-qv-knwapyey broad-based posterior spur/disc prominence mildly to moderately narrowing the canal and moderately narrowing both neural foramina. C6-C7: Mild central posterior spur/disc prominence with relative patency of the canal foramina. C7-T1: No significant disc bulge or herniation. No severe spinal canal stenosis. No significant neural foraminal narrowing. Lungs: Lung apices are normal. Soft tissues: 2 thyroid nodules are again seen. The largest of these is in the right lobe and measures presently 2.1 cm with some punctate calcifications present. The smaller 1 is in the isthmus of the thyroid gland at 1.1 cm. These are unchanged prior measurements utilizing is similar method being at 2.6 and 1.2 cm, respectively. CT/CT cervical spin wo con* [id number] IMPRESSION: 1. No acute osseous cervical spine CT findings. 2. Multilevel osteoarthritic/degenerative changes of the cervical spine and if difficulties persist and further evaluation is needed MRI is suggested for your consideration. 3. Xxfu-qn-llqakhso loss of normal cervical lordosis. 4. Relatively stable/unchanged prominent thyroid nodules comparison to the CT cervical spine study from 2019. COMMENTS: Consistent with the [employer]'s Incidental Findings Committee white paper (J Am Estefani Radiol 2015): In patients aged 35 years and older with an incidental thyroid nodule equal to or greater than 1.[address], MRI or extrathyroidal US, further evaluation with dedicated thyroid US is recommended for patients with normal life expectancy and without comorbidities. For smaller nodules without suspicious features, no further evaluation or follow up is recommended.
--- NOTE | 2024-10-21 17:56 | CTR_ITS ---
PROCEDURE INFORMATION: Exam: CT Chest Without Contrast; Diagnostic Exam date and time: 10/21/2024 7:05 PM Age: 74 years old Clinical indication: Injury or trauma; Fall; Blunt trauma (contusions or hematomas); Additional info: Fall/bilateral rib pain TECHNIQUE: Imaging protocol: Diagnostic computed tomography of the chest without contrast. Radiation optimization: All CT scans at this facility use at least one of these dose optimization techniques: automated exposure control; mA and/or kV adjustment per patient size (includes targeted exams where dose is matched to clinical indication); or iterative reconstruction. COMPARISON: 1. CR XR chest 1V [id number] 05/06/2018 7:10 PM 2. US renal BI* [id number] 06/28/2024 8:[address] cervical spin wo con* [id number] 10/21/2024 6:59 PM RADIATION DOSE METRICS: Total DLP (mGy-cm): 389.13 FINDINGS: Thyroid: 11 mm dense nodule projects in the expected location of the isthmus of the thyroid gland, unchanged from prior C-spine CT. Visualized thyroid lobes are heterogeneous in density, but without focal nodule. Lungs: Small amount of posterior basilar atelectasis on the right. 4 mm ground-glass opacity peripherally in the right lower lobe, likely atelectasis or inflammatory process. No consolidation. Pleural spaces: No effusion or pneumothorax. Heart: Mild left atrial enlargement. Calcifications are noted in the mitral annulus and aortic valve. No pericardial fluid. Lymph nodes: Several mediastinal and left hilar calcifications are present, indicating previous granulomatous disease. No other halina enlargement. Vasculature: Ascending aortic caliber is at the upper limit of normal measuring 4 cm. Descending aortic caliber is normal. Gallbladder and biliary ducts: Large gallstones are present within the gallbladder. No other evidence for cholecystitis. Spleen: The spleen is normal. Kidneys: The partially imaged kidneys reveal large, lobulated cystic structures which splay the renal cortex. A similar appearance was described on prior renal ultrasound. Intraperitoneal space: No upper abdominal free fluid identified. Bones/joints: Healing, nondisplaced fractures of the lateral right 8th and 9th ribs. No other fractures. Small sclerotic densities are noted laterally in the right 10th rib and left 9th rib. Distal aspects of the 12th ribs were not included in the imaging. Soft tissues: Unremarkable. CT/CT chest wo con [id number] IMPRESSION: 1. Healing, nondisplaced fractures of the right 8th and 9th ribs. Acute rib fracture is not identified. 2. No other evidence for traumatic injury to the thorax on unenhanced chest CT. 3. Hilar and mediastinal calcifications indicating previous exposure to granulomatous disease. COMMENTS: Consistent with the [employer]'s Incidental Findings Committee white paper (J Am Estefani Radiol 2018): Any incidental renal lesion less than 1 cm or classified as too small to characterize, or any incidental cystic renal lesion characterized as simple-appearing, is likely benign. No follow-up imaging is recommended for these lesions per consensus recommendations based on imaging criteria.
--- NOTE | 2024-10-21 17:56 | XRR_ITS ---
PROCEDURE INFORMATION: Exam: XR Right Knee Exam date and time: 10/21/2024 6:08 PM Age: 74 years old Clinical indication: Injury or trauma; Fall; Blunt trauma; Knee; Right; Prior surgery; Surgery date: 3-7 days post-operative; Surgery type: Tka; Additional info: Fall/recent knee replacement, open wound TECHNIQUE: Imaging protocol: Radiologic exam of the right knee. Views: 3 views. COMPARISON: CR XR knees AP WB w BI lmt ORTH 12/20/2021 2:56 PM FINDINGS: Bones/joints: A complete right knee prosthesis is intact and normally positioned. No suspicious periprosthetic radiolucency. No fracture or dislocation. Soft tissues: Soft tissues are unremarkable. XR/XR knee RT 3V* [id number] IMPRESSION: 1. Intact right knee prosthesis. 2. No acute fractures
--- NOTE | 2024-10-21 17:56 | CTR_ITS ---
PROCEDURE INFORMATION: Exam: CT Head Without Contrast Exam date and time: 10/21/2024 6:59 PM Age: 74 years old Clinical indication: Injury or trauma; Fall; Blunt trauma (contusions or hematomas); Without loss of consciousness; Additional info: Fall/hit head TECHNIQUE: Imaging protocol: Computed tomography of the head without contrast. Radiation optimization: All CT scans at this facility use at least one of these dose optimization techniques: automated exposure control; mA and/or kV adjustment per patient size (includes targeted exams where dose is matched to clinical indication); or iterative reconstruction. COMPARISON: CT head wo con* [id number] 04/13/2018 14:30 RADIATION DOSE METRICS: Total DLP (mGy-cm): 1156.1 FINDINGS: Brain: [id number] patchy periventricular and deep white matter decreased density seen in both cerebral hemispheres. The midline is intact. A remote lacunar defect is seen within the head/body of the right caudate nucleus (images 25 and 26 series 3). Posterior fossa brain CT Beam hardening artifact obscures resolution through the posterior fossa structures. No hemorrhage. Unremarkable white matter. No mass effect. Cerebral ventricles: Ventricles demonstrate normal size shape and configuration and are felt to be in proportion to the degree of widening of the sulci, sylvian fissures and basilar cisterns. Paranasal sinuses: Visualized sinuses are unremarkable. No fluid levels. Mastoid air cells: Visualized mastoid air cells are well aerated. Bones: The calvarial vault appears to be intact.. No acute fracture. Soft tissues: Mild left supraorbital/frontal soft tissue swelling. CT/CT head wo con* [id number] IMPRESSION: 1. No acute intracranial head CT findings identified. 2. Remote right basal ganglia lacune. 3. Mild left frontal soft tissue swelling.
[2024-10-21 20:27] VITALS: BP 128/68; PULSE 69; O2SAT 99
[2024-10-21] MEDS: lidocaine-epi 1% 20 mL INJ INJECTION (20:27)
[2024-10-21] MEDS: oxyCODONE-APAP 5-325 mg Tablet 2 TAB PO (22:01)
[2024-10-21] MEDS: ceFAZolin 1,000 mg SDV 1000 MG IVP (22:01)
--- NOTE | 2024-10-21 22:14 | ED_ITS ---
HPI - Wound/Laceration General: Chief Complaint: Wound/Laceration Stated Complaint: fall - right knee lac Time Seen by Provider: 10/21/24 17:24 Source: patient Mode of arrival: EMS Limitations: no limitations History of Present Illness: Patient is a 74-year-old female who presents the emergency department after a fall and right knee injury. Recently had knee replacement on September 02, she states that she tripped over her steps walking inside and caused reopening of her previous surgical incision. Bleeding controlled on arrival, she is on a blood thinner. She also states she injured her left ribs and is concerned of rib fractures. She also has abrasion to her chin states that she bumped it on the ground, but did not lose consciousness and was able to get up under her own power. She has been ambulatory since this occurred, however is also reporting pain in her right ankle and believes she sprained her ankle. Has been taking oxycodone for pain, states pain is controlled at this time if she does not move. No symptoms prior to the fall, she states this was accidental. Location: face (Chin) and chest (Left ribs) Extremity Location: Right: knee and ankle Place: home Context: accidental Associated symptoms: Denies chills, fever(s), nausea or vomiting Related Data Home Medications ?Medication ?Instructions ?Recorded ?Confirmed oxybutynin chloride 5 mg tablet 5 mg PO DAILY 12/20/21 10/01/24 rosuvastatin 5 mg tablet (Crestor) 10 mg PO DAILY 12/08/2210/01/24 alendronate 70 mg tablet 70 mg PO Q7D 08/21/22 lisinopril 5 mg tablet 5 mg PO DAILY 07/07/2310/01 tramadol 50 mg tablet 50 mg PO DAILY PRN 07/07/23 10/01/24 Previous Rx's ?Medication ?Instructions ?Recorded albuterol sulfate 90 mcg/actuation 2 puff inhalation Q 4H PRN 07/07/23 aerosol inhaler (Ventolin HFA) shortness of breath or wheezing #8.5 grams doxycycline hyclate 100 mg tablet 100 mg PO BID 7 days #14 tabs 07/07/23 apixaban 5 mg (74 tabs) tablets in See Rx Instructions PO .COMPLEX 11/29/23 a dose pack (Eliquis DVT-PE Treat #74 ea 30D Start) methimazole 5 mg tablet 5 mg PO DAILY #90 tabs 08/25 cephalexin 500 mg capsule 500 mg PO Q6H 7 days #28 cap s 10/21/24 cyclobenzaprine 5 mg tablet 5 mg PO Q8H #6 tabs Allergies Allergy/AdvReac Type Severity Reaction Status Date / Time Iodinated Contrast Media Allergy Unknown Verified 09/06/24 09:28 Review of Systems General: Reports: 10 or more systems reviewed and unremarkable except in HPI and below Const: Denies: fever(s) or chills Card: Denies: chest pain Resp: Denies: dyspnea or productive cough GI: Denies: abdominal pain, nausea, vomiting or diarrhea : Denies: flank pain Musc: Reports: joint pain (Right knee and right ankle) and other (Left rib pain); Denies: neck pain, back pain, extremity pain, extremity swelling, joint swelling, joint redness, joint warmth, limited range of motion or muscle weakness Skin/Breast: Reports: surgical incision (Right anterior knee, dehiscence); Denies: rash Neuro: Denies: headache(s), numbness in extremities or weakness in extremities PFSH ED PFSH: Social History Smoking and tobacco/nicotine status: never used tobacco/nicotine Alcohol intake: never Substance/Drug Use: never Physical Exam Const: COMMON NORMALS: no acute distress, patient oriented x3, no limitations, healthy appearing, alert and well nourished HENMT: COMMON NORMALS: normocephalic and atraumatic HEAD & SCALP: normocephalic and atraumatic OTHER: Abrasion to patient's chin. Negative Richey sign and negative raccoon eyes. No other signs of face head or neck trauma. Eye: COMMON NORMALS: Equal, round and reactive pupils present, EOMs intact bilaterally and conjunctivae normal CONJUNCTIVA: Yes conjunctivae normal PUPIL: Yes Equal, round and reactive pupils present Neck/C-Spine: COMMON NORMALS: full ROM, supple and no meningeal signs CERVICAL SPINE: Yes cervical ROM normal and No Cervical spine tenderness Chest: COMMONS NORMALS: normal inspection of the chest OTHER: Some tenderness to palpation to left lateral ribs, no step-off deformity Resp: COMMON NORMALS: normal respiratory effort, No use of accessory muscles and clear to auscultation bilaterally EFFORT & INSPECTION: Yes able to speak in complete sentences and Yes symmetric chest movement AUSCULTATION: clear to auscultation bilaterally Cardio: COMMON NORMALS: regular rate and regular rhythm RATE: regular rate RHYTHM: regular rhythm GI: COMMON NORMALS: Soft to palpation and non-tender PALPATION: Yes Soft to palpation Back/Pelvis: COMMON NORMALS: no thoracic nor lumbar tenderness and thoraco- lumbar ROM normal Extremity: COMMON NORMALS: normal to inspection, full ROM, capillary refill normal, no joint enlargement and no clubbing, cyanosis or edema NARRATIVE EXTREMITY EXAM: Right knee with large dehiscence over the anterior surgical scar of recent knee replacement. Full range of motion, no active bleeding. Evidence of underlying adiposity and fascia, however no visual of any hardware. Right ankle with some mild lateral soft tissue swelling. Full range of motion, distal neurovascular exam is normal. Neuro: COMMON NORMALS: patient oriented x3, moves all extremities, no focal motor deficits and no sensory deficits noted SENSORIUM/ORIENTATION: Yes alert MENINGEAL SIGNS: Yes no meningeal signs Skin: NARRATIVE SKIN EXAM: The laceration over the right anterior knee measuring approximately 10 cm, no signs of contamination though it involves the subcutaneous layers and protruding adiposity, there is no visualization of underlying hardware or tendon. Procedures Laceration Laceration 1: Site: lower extremity (Knee) Side (If applicable): right Size (cm): 10 Description: linear and clean Depth: simple, single layer Local Anesthetic: lidocaine 1% and with epi Amount of anesthesia used (mL): 10 Pre-repair: wound explored, irrigated extensively and deep structures intact Skin layer closed with: nylon Size (cm): 4-0 Number of sutures: 16 Technique: simple, interrupted Course Vital Signs: Vital signs: Vital Signs Temperature 98.3 F 10/21/24 17:27 Pulse Rate 69 10/21/24 20:27 Respiratory Rate 16 10/21/24 17:27 Blood Pressure 128/68 10/21/24 20:27 Pulse Oximetry 99 10/21/24 20:27 Oxygen Delivery Me thod Room Air 10/21/24 20:27 MDM - Wound/Laceration Medical Decision Making Patient presented by EMS for multitrauma following a fall, most notably dehiscence of her surgical incision to her right anterior knee, which she recently had knee replacement. She had reported pain to her left lateral ribs, and right ankle, imaging of this area was negative. She also had head and neck CT along with her chest CT that was unremarkable for any acute findings. The x- ray of her right knee showing intact prosthesis underneath, and visual examination of the wound itself reveals that the depth does not go all the way to the prosthesis. I spoke with on-call orthopedist, Dr. Palafox, in regards to this finding and he is stating that if there is no visual examination that this can be washed out in the ED and repaired. 500 cc of normal saline used to irrigate the wound, and 16 sutures were placed simple interrupted. Sterile dressing applied and she is started on cephalexin. A gram of Ancef given here through an IV. She is given strict return precautions for any signs of infection, and is instructed to follow-up with orthopedist next week for reevaluation of the wound and make sure that it is healing appropriately. She is encouraged to do activity modifications to avoid any further complications of the wound, and a couple of as needed oxycodone sent home for pain relief and to take prior to bed. Patient agrees with this plan, discharge at this time. Lab Data Radiology Impressions Ankle X-Ray 10/21/24 17:56 IMPRESSION: 1. No acute fracture or dislocation identified. 2. Soft tissue swelling. Cervical Spine CT 10/21/24 17:56 IMPRESSION: 1. No acute osseous cervical spine CT findings. 2. Multilevel osteoarthritic/degenerative changes of the cervical spine and if difficulties persist and further evaluation is needed MRI is suggested for your consideration. 3. [id number] loss of normal cervical lordosis. 4. Relatively stable/unchanged prominent thyroid nodules comparison to the CT cervical spine study from 2019. COMMENTS: Consistent with the [employer]'s Incidental Findings Committee white paper (J Am Estefani Radiol 2015): In patients aged 35 years and older with an incidental thyroid nodule equal to or greater than 1.[address], MRI or extrathyroidal US, further evaluation with dedicated thyroid US is recommended for patients with normal life expectancy and without comorbidities. For smaller nodules without suspicious features, no further evaluation or follow up is recommended. Chest CT 10/21/24 17:56 IMPRESSION: 1. Healing, nondisplaced fractures of the right 8th and 9th ribs. Acute rib fracture is not identified. 2. No other evidence for traumatic injury to the thorax on unenhanced chest CT. 3. Hilar and mediastinal calcifications indicating previous exposure to granulomatous disease. COMMENTS: Consistent with the [employer]'s Incidental Findings Committee white paper (J Am Estefani Radiol 2018): Any incidental renal lesion less than 1 cm or classified as too small to characterize, or any incidental cystic renal lesion characterized as simple-appearing, is likely benign. No follow-up imaging is recommended for these lesions per consensus recommendations based on imaging criteria. Head CT 10/21/24 17:56 IMPRESSION: 1. No acute intracranial head CT findings identified. 2. Remote right basal ganglia lacune. 3. Mild left frontal soft tissue swelling. Knee X-Ray 10/21/24 17:56 IMPRESSION: 1. Intact right knee prosthesis. 2. No acute fractures All radiology interpretation(s) finalized by discharge Discharge Plan Discharge Patient Disposition: Home Clinical Impression: Fall, Laceration of knee, right, Contusion of rib on left side, Abrasion of chin, Right ankle sprain Condition: Stable Prescriptions: New cephalexin 500 mg capsule 500 mg PO Q6H 7 Days Qty: 28 0RF cyclobenzaprine 5 mg tablet 5 mg PO Q8H Qty: 6 0RF No Action alendronate 70 mg tablet 70 mg PO Q7D Rx Instructions: ON FRIDAY lisinopril 5 mg tablet 5 mg PO DAILY tramadol 50 mg tablet 50 mg PO DAILY PRN doxycycline hyclate 100 mg tablet 100 mg PO BID 7 Days Qty: 14 0RF albuterol sulfate [Ventolin HFA] 90 mcg/actuation HFA aerosol inhaler 2 puff inhalation Q4H PRN (Reason: shortness of breath or wheezing) Qty: 8.5 0RF oxybutynin chloride 5 mg tablet 5 mg PO DAILY rosuvastatin [Crestor] 5 mg tablet 10 mg PO DAILY methimazole 5 mg tablet 5 mg PO DAILY Qty: 90 1RF Eliquis DVT-PE Treat 30D Start 5 mg (74 tabs) tablets,dose pack See Rx Instructions .ROUTE .COMPLEX Qty: 74 0RF Rx Instructions: orally per package directions Discharge Orders: Discharge ED (Routine); Ordered 10/21/24 Ordered By: Jean Quintero Referrals: Hull,Emily Marika, [employer] [Primary Care Provider, Family Practice] Patient Instructions: Patient Portal & Iftikhar Instructions Activity Restrictions/Additional Instructions: ED Knee Wound Discharge Discharge Instructions: 74-year-old Female, Post-Right TKA, Fall with Super ficial Incision Dehiscence Wound Care: - The right knee incision was thoroughly irrigated and closed with 16 sutures; a sterile dressing was applied. - Maintain the dressing clean, dry, and intact. Evidence supports that undisturbed wound healing with advanced dressings (e.g., transparent hydropolymer) for up to 14 days is safe and comfortable after knee arthroplasty, minimizing the need for dressing changes unless soiled or wet. - If a standard sterile dressing was used, it may be left in place for 48 hours; after this, dressing changes can be performed as needed, but early removal does not increase infection risk in clean wounds. - If the dressing becomes wet, soiled, or loose, replace it with a sterile dressing. Avoid topical antiseptics (e.g., Betadine, Hibiclens) on open wounds due to tissue toxicity; topical antibiotic ointment (e.g., Polysporin) may be used if recommended. - Showering may be permitted after 3 days if the wound is uncomplicated and the dressing is removed immediately prior, per recent orthopedic trauma protocols. Pat the area dry and reapply a sterile dressing. - Monitor for signs of infection: increasing redness, warmth, swelling, purulent drainage, or fever. Suture Removal: - Sutures should be removed in 10?14 days, depending on wound healing and patient factors. For knee incisions, 14 days is standard, but earlier removal (10?12 days) may be considered if healing is robust and there is no tension. - Schedule suture removal with orthopedics at the 1-week follow-up, with final timing determined by wound assessment. Follow-Up: - Arrange outpatient orthopedic follow-up in 7 days for wound and functional assessment. This timing aligns with evidence suggesting that 7?10 day follow-up after knee arthroplasty reduces ED visits and complications. - Telephone follow-up within 48 hours by a nurse practitioner may improve comprehension and early detection of complications in geriatric patients. Pain Management: - A limited supply of oxycodone was dispensed. Use the lowest effective dose for the shortest duration, as recommended by the [employer] and FDA; elderly patients are at increased risk for adverse effects, including respiratory depression. - Oxycodone should be taken only as needed for severe pain, not scheduled. Do not exceed the prescribed amount. Taper and discontinue as pain improves; transition to acetaminophen or NSAIDs if not contraindicated. - Muscle relaxant (5 mg tablet) prescribed for bedtime use only; break in half and take 2.5 mg nightly as directed. Caution: concomitant use of opioids and muscle relaxants increases risk of sedation and respiratory depression; monitor for excessive drowsiness, confusion, or difficulty breathing. - Avoid alcohol, sedatives, or other [employer] depressants while taking these medications. Antibiotic Therapy: - Received intravenous cefazolin (Ancef) in the ED. Discharged on oral cephalexin (dose and duration per ED prescription). Cephalexin is non-inferior to IV cefazolin for uncomplicated skin and soft tissue infection after wound closure. - Complete the full course as prescribed. Monitor for rash, diarrhea, or other adverse reactions. Strict Return Precautions: - Return to the ED immediately for: - Increasing pain, redness, swelling, or purulent drainage from the wound - Fever >38?C (100.4?F) - Bleeding that does not stop with direct pressure - Separation or opening of the wound - Signs of systemic illness: confusion, shortness of breath, chest pain - Adverse medication effects: severe drowsiness, difficulty breathing, persistent nausea/vomiting, rash Additional Considerations: - Early mobilization and functional rehabilitation are encouraged, but avoid activities that place stress on the surgical knee until cleared by orthopedics. - Venous thromboembolism prophylaxis and delirium prevention should be considered per standard protocols in geriatric orthopedic patients. - Provide written and verbal instructions; consider telephone follow-up to reinforce understanding and address questions. Summary: This discharge plan reflects current best practices for wound care, pain management, and follow-up in geriatric patients with superficial wound dehiscence after knee arthroplasty, aiming to minimize complications and optimize recovery. Print Language: Albanian Coding Level of Care Code ED [employer] Leader for [employer] Tran
== END 2024-10-21 22:16 | disposition home or self-care (01) ==
PROVIDERS: Emergency Provider Physician Assistant; PCP Nurse Practitioner
DX: S20.212A Contusion of left front wall of thorax, initial encounter (principal); S00.81XA Abrasion of other part of head, initial encounter; S93.401A Sprain of unspecified ligament of right ankle, initial encounter; S81.011A Laceration without foreign body, right knee, initial encounter; Z79.01 Long term (current) use of anticoagulants; W19.XXXA Unspecified fall, initial encounter; Z96.651 Presence of right artificial knee joint
CPT/HCPCS: 12004; 70450; 71250; 72125; 73562; 73610; 96374; 99285; J0690; J9999